=== PATIENT | male | born 1935 | race Hispanic/Latino ===

== ENCOUNTER 2017-05-06 21:46 | Inpatient (IN) | payer MEDICARE, OTHER ==
[2017-05-06 21:50] VITALS: BMI 25.0
--- NOTE | 2017-05-06 22:08 | ED PDOC ---
Arrival/HPI - General Chief Complaint: Syncope Time Seen by Provider: 05/06/17 21:57 Historian: Patient - History of Present Illness Narrative History of Present Illness (Text): 05/06/17 21:57 Finn Ferreira is an 81 year old male brought in by EMS following a syncopal episode at home prior to arrival. Patient does no recollect exactly what happened other than the fact the he fell and hit his head. Patient denies any dizziness, visual disturbance, neck pain, back pain, shortness of breath, chest pain. As per collateral information, partner called EMS to have patient transported to the emergency department. Patient is currently without any complaints other than minimal tenderness to his forehead. 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 Biopsy of vocal cord nodule - Anesthesia Hx Anesthesia Reactions: No Hx Malignant Hyperthermia: No - Suicidal Assessment Feels Threatened In Home Enviroment: No Family/Social History - Physician Review Nursing Documentation Reviewed: Yes Family/Social History: No Known Family HX Smoking Status: Former Smoker Hx Alcohol Use: Yes Hx Substance Use: No Hx Substance Use Treatment: No Allergies/Home Meds Allergies/Adverse Reactions: Allergies No Known Allergies Allergy (Verified 05/06/17 21:50) Home Medications: Home Meds Medication Instructions Recorded Confirmed Fluticasone/Salmeterol [Advair 1 puff IH BID 07/28/13 05/06/17 Diskus 250/50] Metoprolol Tartrate [Lopressor] 0 mg PO DAILY 05/06/17 05/06/17 Review of Systems - Physician Review All systems were reviewed & negative as marked: Yes - Review of Systems Constitutional: absent: Fevers, Night Sweats Eyes: absent: Vision Changes ENT: absent: Hearing Changes Respiratory: absent: SOB, Cough Cardiovascular: Syncope. absent: Chest Pain Gastrointestinal: absent: Abdominal Pain Genitourinary Male: absent: Dysuria Musculoskeletal: absent: Arthralgias Skin: absent: Rash, Pruritis Neurological: absent: Headache, Dizziness Endocrine: absent: Diaphoresis, Polyuria Hemo/Lymphatic: absent: Adenopathy, Easy Bleeding Physical Exam Vital Signs Reviewed: Yes Vital Signs Temp Pulse Resp BP Pulse Ox 05/07/17 01:47 70 18 133/71 98 05/06/17 23:47 72 18 132/70 97 05/06/17 21:55 97.8 F 70 21 131/71 97 Temperature: Afebrile Blood Pressure: Normal Pulse: Regular Respiratory Rate: Normal Appearance: Positive for: Well-Appearing, Non-Toxic, Comfortable Pain Distress: None Mental Status: Positive for: Alert and Oriented X 3 - Systems Exam Head: Present: Contusion, Abrasion, Other (swelling to right forehead) Pupils: Present: PERRL Extroacular Muscles: Present: EOMI Conjunctiva: Present: Normal Mouth: Present: Moist Mucous Membranes Neck: Present: Normal Range of Motion Respiratory/Chest: Present: Clear to Auscultation, Good Air Exchange. No: Respiratory Distress, Accessory Muscle Use Cardiovascular: Present: Regular Rate and Rhythm, Normal S1, S2. No: Murmurs Abdomen: Present: Normal Bowel Sounds. No: Tenderness, Distention, Peritoneal Signs Back: Present: Normal Inspection Upper Extremity: Present: Normal Inspection, Normal ROM. No: Cyanosis, Edema Lower Extremity: Present: Normal Inspection, NORMAL PULSES, Normal ROM. No: Edema Neurological: Present: GCS=15, CN II-XII Intact, Speech Normal, Motor Func Grossly Intact, Normal Sensory Function, Normal Cerebellar Funct, Norm Deep Tendon Reflexes, Gait Normal, Memory Normal, Normal 2Pt Descrimination Skin: Present: Warm, Dry, Normal Color. No: Rashes Psychiatric: Present: Alert, Oriented x 3, Normal Insight, Normal Concentration Medical Decision Making ED Course and Treatment: 05/06/17 22:10 Impression: 81 year old male complaining of a syncopal episode prior to arrival. Differential Diagnosis included but are not limited to: Syncope Plan: -- EKG -- Chest X-ray -- Head CT w/o contrast -- Labs -- Reassess and disposition Prior Visits: Notes and results from previous visits were reviewed. Patient last seen in the ED on 01/23/15 for ETOH intoxication. Patient was discharged home. Progress Notes: EKG: Ordered, reviewed, and independently interpreted the EKG. Rate : 72 BPM Rhythm : NSR Interpretation : No ST-segment elevations or depressions, no T-wave inversions, normal intervals. 05/07/17 00:13 CT Head Without Intravenous Contrast Creator : NORA ALDRICH FINDINGS: Brain: No acute intracranial hemorrhage. Age-appropriate periventricular white matter disease. No edema. Ventricles: Age-appropriate ventriculomegaly. Bones: No acute displaced fracture. Sinuses: Unremarkable as visualized. No acute sinusitis. Mastoid air cells: Unremarkable as visualized. No mastoid effusion. IMPRESSION: No acute intracranial hemorrhage, or suspicious mass effect. 05/07/17 00:[address] Fisher, who accepts to his service under telemetry observation. Dr. Cardoso neurology consult to follow. - Lab Interpretations Lab Results: 05/06/17 22:00 05/06/17 22:00 Lab Results 05/06/17 22:00: WBC 10.1, RBC 4.77, Hgb 15.1, Hct 43.6, MCV 91.4, MCH 31.7, MCHC 34.6, RDW 14.6 H, Plt Count 253, MPV 9.4 05/06/17 22:00: Sodium 128 L, Potassium 4.9, Chloride 89 L, Carbon Dioxide 25, Anion Gap 19, BUN 8, Creatinine 0.6 L, Est GFR ( Amer) > 60, Est GFR (Non -Af Amer) > 60, Random Glucose 98, Calcium 8.6, Total Bilirubin 0.8, AST 58, ALT 32, Alkaline Phosphatase 81, Lactate Dehydrogenase 710 H, Total Creatine Kinase 88, Troponin I 0.01, Total Protein 6.7, Albumin 3.8, Globulin 2.9, Albumin/Globulin Ratio 1.3 05/06/17 22:00: PT 11.0, INR 1.02, APTT 25.9 I have reviewed the lab results: Yes - RAD Interpretation Radiology Orders: 05/06/17 21:57 HEAD W/O CONTRAST [CT] Stat CHEST PORTABLE [RAD] Stat - Scribe Statement The provider has reviewed the documentation as recorded by the Elleibe Meredith Barrett Provider Scribe Attestation: All medical record entries made by the Scribe were at my direction and personally dictated by me. I have reviewed the chart and agree that the record accurately reflects my personal performance of the history, physical exam, medical decision making, and the department course for this patient. I have also personally directed, reviewed, and agree with the discharge instructions and disposition. Disposition/Present on Arrival - Present on Arrival Any Indicators Present on Arrival: No History of DVT/PE: No History of Uncontrolled Diabetes: No Urinary Catheter: No History of Decub. Ulcer: No History Surgical Site Infection Following: None - Disposition Have Diagnosis and Disposition been Completed?: Yes Diagnosis: Syncope, Head injury, Forehead contusion Disposition: HOSPITALIZED Disposition Time: 00:48 Patient Plan: Observation Patient Problems: Current Active Problems Problem Status Onset Forehead contusion Acute Head injury Acute Syncope Acute Condition: STABLE
[2017-05-06 22:38] LABS: HEMATOCRIT 43.6 % (42.0-52.0); MEAN CELL VOLUME 91.4 fl (80.0-105.0); MEAN CORPUSCULAR HEMOGLOBIN 31.7 pg (25.0-35.0); MEAN CORPUSCULAR HGB CONC 34.6 g/dl (31.0-37.0); MEAN PLATELET VOLUME 9.4 fl (7.0-11.0); RED CELL DISTRIBUTION WIDTH 14.6 % (11.5-14.5); WHITE BLOOD COUNT 10.1 10^3/ul (4.5-11.0)
[2017-05-06 22:46] LABS: ALB/GLOB RATIO 1.3 (1.1-1.8); ALKALINE PHOSPHATASE 81 U/L (38-126); ALT/SGPT 32 U/L (7-56); AST/SGOT 58 U/L (17-59); BILIRUBIN,TOTAL 0.8 mg/dL (0.2-1.3); BLOOD UREA NITROGEN 8 mg/dL (7-21); CALCIUM 8.6 mg/dL (8.4-10.5); CARBON DIOXIDE 25 mmol/L (21-33); CHLORIDE 89 mmol/L (98-107); GFR AFRICAN-AMERICAN > 60; GLUCOSE,RANDOM 98 mg/dL (70-110); POTASSIUM 4.9 mmol/L (3.6-5.0); SODIUM 128 mmol/L (132-148); TOTAL PROTEIN 6.7 g/dL (5.8-8.3)
[2017-05-06 22:57] LABS: TROPONIN I 0.01 ng/mL
--- NOTE | 2017-05-06 23:07 | CT ---
EXAM: CT Head Without Intravenous Contrast CLINICAL HISTORY: 81 years old, male; Pain; Headache; Headache not specified; Additional info: Syncope TECHNIQUE: Axial computed tomography images of the head/brain without intravenous contrast. All CT scans at this facility use one or more dose reduction techniques, viz.: automated exposure control; ma/kV adjustment per patient size (including targeted exams where dose is matched to indication; i.e. head); or iterative reconstruction technique. Sagittal reformatted images were created and reviewed. COMPARISON: No relevant prior studies available. examination is limited by motion artifact. FINDINGS: Brain: No acute intracranial hemorrhage. Age-appropriate periventricular white matter disease. No edema. Ventricles: Age-appropriate ventriculomegaly. Bones: No acute displaced fracture. Sinuses: Unremarkable as visualized. No acute sinusitis. Mastoid air cells: Unremarkable as visualized. No mastoid effusion. IMPRESSION: No acute intracranial hemorrhage, or suspicious mass effect.
[2017-05-06 23:09] LABS: INR 1.02 (0.93-1.08); PARTIAL THROMBOPLASTIN TIME 25.9 Seconds (23.7-30.8)
[2017-05-07] MEDS: Arformoterol 15 mcg/2 ml Inh Sol IH SCH ×2 (08:30→21:00)
--- NOTE | 2017-05-07 08:55 | RAD ---
HISTORY: Syncope COMPARISON: 08/05/2013 FINDINGS: LUNGS: The lungs are hyperinflated and there is peribronchial thickening with chronic changes in both lungs. No focal consolidation. PLEURA: No significant pleural effusion identified, no pneumothorax apparent. CARDIOVASCULAR: Normal. OSSEOUS STRUCTURES: No significant abnormalities. VISUALIZED UPPER ABDOMEN: Normal. OTHER FINDINGS: None. IMPRESSION: No active pulmonary disease.
[2017-05-07] MEDS ORDERED: Albuterol-Ipratrop 3 mg / 0.5 (3 ml) UD IH PRN (08:56)
--- NOTE | 2017-05-07 10:11 | CARD ---
APPROVED REPORT EKG Measurement Heart [id number] <Conclusion> Poor data quality, interpretation may be adversely affected Normal sinus rhythm Normal ECG
--- NOTE | 2017-05-07 12:55 | CP.PCM.CON ---
<Nicki Jordan - Last Filed: 05/07/17 16:00> History of Present Illness - History of Present Illness History of Present Illness: Neurology Consult Note for Mal Montgomery PGY2 Reason for consult: Syncope This is a 81Y M with PMH HTN, COPD and depression who came to ED for syncopal episode and fall. Patient reports he was drinking wine at home. When he went to stand up, he felt dizzy and lost consciousness and hit his head. His partner was home at the time. He denies tongue biting, tonic-clonic movements, incontinence, vertigo, vision changes, CP or SOB. He reports this has happened several times in the past where he has gotten dizzy and fell. Head CT in ED was negative for acute pathology. PMH: HTN, depression, COPD, fall PSH: Vocal cord nodule biopsy Home meds: As per SEP All: NKDA SH: Drinks 2 large glasses of wine everyday, former heavy smoker (used to smoke 2ppd x >30yrs), denies drug use. 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 Partial corneal transplant - RENAL Hx Chronic Kidney Disease: No - HEMATOLOGICAL/ONCOLOGICAL Hx Blood Disorders: No - INTEGUMENTARY Hx Dermatological Problems: No - MUSCULOSKELETAL/RHEUMATOLOGICAL Hx Musculoskeletal Disorders: No - GASTROINTESTINAL Hx Gastrointestinal Disorders: No - GENITOURINARY/GYNECOLOGICAL Hx Genitourinary Disorders: No - PSYCHIATRIC Hx Depression: Yes Hx Substance Use: No - SURGICAL HISTORY Other/Comment: cataract and corneal transplant. Biopsy of vocal cord nodule - ANESTHESIA Hx Anesthesia Reactions: No Hx Malignant Hyperthermia: No Meds Allergies/Adverse Reactions: Allergies Allergy/AdvReac Type Severity Reaction Status Date / Time No Known Allergies Allergy Verified 05/06/17 21:50 - Medications Medications: Current Medications Albuterol/Ipratropium (Duoneb 3 Mg/0.5 Mg (3 Ml) Ud) 3 ml IH Q2H PRN PRN Reason: Shortness of Breath Arformoterol Tartrate (Brovana) 15 mcg IH [id number] [facility] Last Admin: 05/07/17 08:30 Dose: 15 mcg Metoprolol Tartrate (Lopressor) 25 mg PO BID [facility] Last Admin: 05/07/17 09:58 Dose: 25 mg Physical Exam - Constitutional Appears: No Acute Distress - Head Exam Head Exam: ATRAUMATIC, NORMAL INSPECTION, NORMOCEPHALIC - Eye Exam Eye Exam: Normal appearance, PERRL Pupil Exam: NORMAL ACCOMODATION, PERRL - ENT Exam ENT Exam: Mucous Membranes Moist - Respiratory Exam Respiratory Exam: Clear to Auscultation Bilateral, NORMAL BREATHING PATTERN. absent: Rales, Rhonchi, Wheezes - Cardiovascular Exam Cardiovascular Exam: REGULAR RHYTHM, +S1, +S2. absent: Gallop, Rubs, Systolic Murmur - GI/Abdominal Exam GI & Abdominal Exam: Normal Bowel Sounds, Soft. absent: Rebound, Rigid, Tenderness - Extremities Exam Extremities exam: Positive for: normal inspection. Negative for: calf tenderness, pedal edema - Neurological Exam Neurological exam: Alert, CN II-XII Intact, Normal Gait, Oriented x3 - Psychiatric Exam Psychiatric exam: Normal Affect, Normal Mood - Skin Skin Exam: Dry, Intact, Normal Color, Warm Results - Vital Signs Recent Vital Signs: Last Vital Signs Temp 98.7 F 05/07/17 12:07 Pulse 74 05/07/17 12:07 Resp 16 05/07/17 12:07 BP 117/60 05/07/17 12:07 Pulse Ox 95 05/07/17 06:00 - Labs Result Diagrams: 05/06/17 22:00 05/06/17 22:00 Labs: Laboratory Results - last 24 hr 05/07/17 09:00 Urine Opiates Screen Negative Urine Methadone Screen Negative Ur Barbiturates Screen Negative Ur Phencyclidine Scrn Negative Ur Amphetamines Screen Negative U Benzodiazepines Scrn Negative U Oth Cocaine Metabols Negative U Cannabinoids Screen Negative Assessment & Plan - Assessment and Plan (Free Text) Assessment: This is a 81Y M with PMH HTN, COPD and depression who came to ED for syncopal episode and fall. This can be secondary to alcohol use versus orthostasis versus arrhythmia. Plan: - Will obtain carotid doppler - Counselled pt on alcohol cessation - Orthostatics ordered and reviewed- negative - Avoid sudden drops in BP - Utox negative - Recommend cardiac work up for syncopal episodes to rule out arrhythmia - physical therapy - Maintain adequate hydration No further neurological work up at this time. Thank you for this consultation. Please re-consult if needed. Case seen, discussed and reviewed with Dr. Cardoso. Mal Jordan PGY2 - Date & Time Date: 05/07/17 Time: 13:00 <Damien Cardoso - Last Filed: 05/07/17 16:23> Meds - Medications Medications: Current Medications Acetaminophen (Tylenol 325mg Tab) 650 mg PO Q6H PRN PRN Reason: Headache Last Admin: 05/07/17 13:03 Dose: 650 mg Albuterol/Ipratropium (Duoneb 3 Mg/0.5 Mg (3 Ml) Ud) 3 ml IH Q2H PRN PRN Reason: Shortness of Breath Arformoterol Tartrate (Brovana) 15 mcg IH [id number] [facility] Last Admin: 05/07/17 08:30 Dose: 15 mcg Metoprolol Tartrate (Lopressor) 25 mg PO BID [facility] Last Admin: 05/07/17 09:58 Dose: 25 mg Results - Vital Signs Recent Vital Signs: Last Vital Signs Temp 98.7 F 05/07/17 12:07 Pulse 74 05/07/17 12:07 Resp 16 05/07/17 12:07 BP 117/60 05/07/17 12:07 Pulse Ox 95 05/07/17 06:00 - Labs Result Diagrams: 05/06/17 22:00 05/06/17 22:00 Labs: Laboratory Results - last 24 hr 05/07/17 09:00 Urine Opiates Screen Negative Urine Methadone Screen Negative Ur Barbiturates Screen Negative Ur Phencyclidine Scrn Negative Ur Amphetamines Screen Negative U Benzodiazepines Scrn Negative U Oth Cocaine Metabols Negative U Cannabinoids Screen Negative Attending/Attestation - Attestation I have personally seen and examined this patient.: Yes I have fully participated in the care of the patient.: Yes I have reviewed all pertinent clinical information: Yes
--- NOTE | 2017-05-07 19:37 | HP ---
HISTORY OF PRESENT ILLNESS: The patient is an 81-year-old male; brought into the emergency department on 05/07/2017 after a syncopal episode at home. The patient denies any prodromal symptoms, states he was drinking a few glasses of wine and has no recollection of what happened. There was no chest pain, no shortness of breath. He denied any dizziness. There was no witness seizures. The patient has chronic dyspnea on exertion and occasional shortness of breath. He denies dizziness. PAST MEDICAL HISTORY: Includes chronic obstructive pulmonary disease secondary to tobacco, hypertension, gastroesophageal reflux disease. PAST SURGICAL HISTORY: He has no past surgical history. ALLERGIES: HE HAS NO KNOWN DRUG ALLERGIES. CURRENT MEDICATIONS: Include Advair Diskus 250/50, one inhalation twice a day and metoprolol succinate 25 mg daily, aspirin 81 mg daily. FAMILY HISTORY: Noncontributory. SOCIAL HISTORY: The patient has a history of tobacco use, quit several years ago. He drinks approximately 3-4 glasses of wine per day. There is no history of drug use. REVIEW OF SYSTEMS: Essentially negative other than above. PHYSICAL EXAMINATION GENERAL: The patient is a well-developed, well-nourished male, in no acute distress. VITAL SIGNS: Blood pressure 117/60, temperature 98.7, pulse 79, respiratory rate 16. HEENT: Head is normocephalic and atraumatic. Pupils are equal, round and reactive to light. Extraocular movements are intact. NECK: Supple with no thyromegaly, no carotid bruit, no adenopathy. LUNGS: Show few crepitations and decreased breath sounds at the bases, otherwise clear. HEART: Regular rate and rhythm. No JVD. ABDOMEN: Soft, obese, nontender. Bowel sounds are normoactive. EXTREMITIES: Without cyanosis, clubbing or edema. NEUROLOGIC: The patient is awake and oriented x3 without focal, sensory or motor deficits. SKIN: Warm and dry. LABORATORY DATA: WBC is 10.1, hemoglobin 15.1, hematocrit 43.6. Sodium is 128, potassium 4.9, chloride 89, CO2 25, BUN 8, creatinine 0.6. LDH is slightly elevated at 710. IMPRESSION: 1. Hyponatremia, rule out syndrome of inappropriate antidiuretic hormone secretion secondary to lung disease versus dehydration. 2. Syncope. 3. Chronic obstructive pulmonary disease. 4. Hypertension. 5. Gastroesophageal reflux disease. PLAN: The patient is admitted to the telemetry unit. We will monitor electrolytes, start IV saline with cautious hydration. Neurology consult with Dr. Cardoso is ordered. CT scan of the head was negative for any acute bleeds or infarcts and chest x-ray showed no active disease. Physical therapy, evaluation and treatment, social work for discharge planning. SHARI Matute MD
[2017-05-08 07:52] LABS: ALB/GLOB RATIO 1.4 (1.1-1.8); ALKALINE PHOSPHATASE 101 U/L (38-126); ALT/SGPT 35 U/L (7-56); AST/SGOT 40 U/L (17-59); BILIRUBIN,TOTAL 1.2 mg/dL (0.2-1.3); BLOOD UREA NITROGEN 9 mg/dL (7-21); CARBON DIOXIDE 32 mmol/L (21-33); CHLORIDE 86 mmol/L (98-107); GFR AFRICAN-AMERICAN > 60; GLUCOSE,RANDOM 111 mg/dL (70-110); POTASSIUM 4.8 mmol/L (3.6-5.0); SODIUM 127 mmol/L (132-148); TOTAL PROTEIN 6.6 g/dL (5.8-8.3)
[2017-05-08] MEDS: Arformoterol 15 mcg/2 ml Inh Sol IH SCH ×2 (07:57→19:40)
[2017-05-08 08:09] LABS: T4 7.5 ug/dL (5.5-11.0)
[2017-05-08 08:22] LABS: THYROID STIMULATING HORMONE 1.97 mIU/mL (0.46-4.68)
--- NOTE | 2017-05-08 11:39 | CP.PCM.PN ---
Subjective - Date & Time of Evaluation Date of Evaluation: 05/08/17 Time of Evaluation: 09:00 - Subjective Subjective: NAD, denies chest pain, no SOB Objective - Vital Signs/Intake and Output Vital Signs (last 24 hours): Temp Pulse Resp BP Pulse Ox 98.5 F 77 16 159/82 H 95 05/07/17 18:00 05/08/17 06:00 05/07/17 18:00 05/07/17 18:00 05/07/17 06:00 - Medications Medications: Current Medications Acetaminophen (Tylenol 325mg Tab) 650 mg PO Q6H PRN PRN Reason: Headache Last Admin: 05/07/17 18:56 Dose: 650 mg Albuterol/Ipratropium (Duoneb 3 Mg/0.5 Mg (3 Ml) Ud) 3 ml IH Q2H PRN PRN Reason: Shortness of Breath Arformoterol Tartrate (Brovana) 15 mcg IH [id number] Last Admin: 05/08/17 07:57 Dose: 15 mcg Sodium Chloride (Sodium Chloride 0.9%) 1,000 mls @ 100 mls/hr IV .Q10H [id number] Metoprolol Tartrate (Lopressor) 25 mg PO BID [id number] Last Admin: 05/08/17 09:33 Dose: 25 mg - Labs Labs: 05/08/17 07:18 PT 11.0 Seconds (9.9-11.8) 05/06/17 22:00 INR 1.02 (0.93-1.08) 05/06/17 22:00 APTT 25.9 Seconds (23.7-30.8) 05/06/17 22:00 - Respiratory Exam Respiratory Exam: Clear to Ausculation Bilateral, NORMAL BREATHING PATTERN - Cardiovascular Exam Cardiovascular Exam: REGULAR RHYTHM - GI/Abdominal Exam GI & Abdominal Exam: Normal Bowel Sounds - Extremities Exam Extremities Exam: Normal Inspection - Neurological Exam Neurological Exam: Alert, Awake - Skin Skin Exam: Dry, Warm Assessment and Plan (1) Syncope Status: Acute (2) Hyponatremia Status: Acute (3) COPD (chronic obstructive pulmonary disease) Status: Acute (4) Hypertension Status: Acute - Assessment and Plan (Free Text) Plan: start IV normal saline, monitor lytes, neuro consult appreciated, syncope work- up pending
[2017-05-08] MEDS: Sodium Chloride 0.9% 1,000 ML IV SCH ×2 (12:06→22:32)
--- NOTE | 2017-05-08 20:02 | US ---
PROCEDURE: Bilateral carotid artery duplex ultrasound HISTORY: Carotid stenosis syncope PHYSICIAN(S): Valdo Joya MD. TECHNIQUE: Duplex sonography and color-flow Doppler were used to evaluate the carotid bifurcations and limited segments of the vertebral arteries bilaterally. The exam is limited by body habitus. FINDINGS: There is mild to moderate heterogeneous plaque with some shadowing noted at the carotid bifurcations bilaterally. The peak systolic velocity in the proximal right internal carotid artery is 52 cm/sec. This corresponds to a 20 to 39% proximal right ICA stenosis. Normal systolic velocities are noted in the proximal right external carotid artery. There is antegrade flow in the right vertebral artery. The origin of the left internal carotid artery is somewhat obscured by shadowing plaque. The peak systolic velocity in the proximal left internal carotid artery is 76 cm/sec. This corresponds to a 20 to 39% proximal left ICA stenosis. Normal systolic velocities are noted in the proximal left external carotid artery. There is antegrade flow in the left vertebral artery. IMPRESSION: 1. Bilateral 20-39% proximal ICA stenoses. 2. Antegrade flow in both vertebral arteries.
[2017-05-09 06:39] LABS: BASO # 0.02 K/mm3 (0.0-2.0); BASO % 0.3 % (0.0-3.0); EOS # 0.1 (0.0-0.7); EOS % 1.8 % (1.5-5.0); GRAN # 4.36 (1.4-6.5); GRAN % 59.5 % (50.0-68.0); HEMATOCRIT 42.2 % (42.0-52.0); LYMPH # 2.1 (1.2-3.4); MEAN CELL VOLUME 90.9 fl (80.0-105.0); MEAN CORPUSCULAR HEMOGLOBIN 31.3 pg (25.0-35.0); MEAN CORPUSCULAR HGB CONC 34.4 g/dl (31.0-37.0); MEAN PLATELET VOLUME 9.5 fl (7.0-11.0); MONO # 0.7 (0.1-0.6); MONO % 9.4 % (1.0-6.0); RED CELL DISTRIBUTION WIDTH 14.5 % (11.5-14.5); WHITE BLOOD COUNT 7.3 10^3/ul (4.5-11.0)
[2017-05-09] MEDS: Sodium Chloride 0.9% 1,000 ML IV SCH ×2 (06:45→19:45)
[2017-05-09 06:46] LABS: ALB/GLOB RATIO 1.3 (1.1-1.8); ALKALINE PHOSPHATASE 88 U/L (38-126); ALT/SGPT 35 U/L (7-56); AST/SGOT 40 U/L (17-59); BILIRUBIN,TOTAL 1.2 mg/dL (0.2-1.3); BLOOD UREA NITROGEN 7 mg/dL (7-21); CALCIUM 8.6 mg/dL (8.4-10.5); CARBON DIOXIDE 28 mmol/L (21-33); CHLORIDE 90 mmol/L (98-107); GFR AFRICAN-AMERICAN > 60; GLUCOSE,RANDOM 93 mg/dL (70-110); POTASSIUM 4.4 mmol/L (3.6-5.0); SODIUM 127 mmol/L (132-148); TOTAL PROTEIN 6.6 g/dL (5.8-8.3)
[2017-05-09] MEDS: Arformoterol 15 mcg/2 ml Inh Sol IH SCH ×2 (07:29→21:00)
--- NOTE | 2017-05-09 13:04 | CP.PCM.PN ---
Subjective - Date & Time of Evaluation Date of Evaluation: 05/09/17 Time of Evaluation: 10:00 - Subjective Subjective: NAD, denies chest pain, no SOB Objective - Vital Signs/Intake and Output Vital Signs (last 24 hours): Temp Pulse Resp BP Pulse Ox 97.8 F 64 19 173/94 H 98 05/09/17 12:00 05/09/17 12:00 05/09/17 12:00 05/09/17 12:00 05/09/17 06:00 Intake and Output: 05/09/17 05/09/17 06:59 18:59 Intake Total 1620 1200 Output Total 900 Balance 720 1200 - Medications Medications: Current Medications Acetaminophen (Tylenol 325mg Tab) 650 mg PO Q6H PRN PRN Reason: Headache Last Admin: 05/08/17 22:32 Dose: 650 mg Albuterol/Ipratropium (Duoneb 3 Mg/0.5 Mg (3 Ml) Ud) 3 ml IH Q2H PRN PRN Reason: Shortness of Breath Arformoterol Tartrate (Brovana) 15 mcg IH [id number] [facility] Last Admin: 05/09/17 07:29 Dose: 15 mcg Sodium Chloride (Sodium Chloride 0.9%) 1,000 mls @ 100 mls/hr IV .Q10H [facility] Last Admin: 05/09/17 06:45 Dose: Not Given Metoprolol Tartrate (Lopressor) 25 mg PO BID [facility] Last Admin: 05/09/17 09:33 Dose: 25 mg - Labs Labs: 05/09/17 06:29 05/09/17 06:29 PT 11.0 Seconds (9.9-11.8) 05/06/17 22:00 INR 1.02 (0.93-1.08) 05/06/17 22:00 APTT 25.9 Seconds (23.7-30.8) 05/06/17 22:00 - Head Exam Head Exam: ATRAUMATIC, NORMOCEPHALIC - Respiratory Exam Respiratory Exam: Prolonged Expiratory Phase, Rhonchi - Cardiovascular Exam Cardiovascular Exam: REGULAR RHYTHM - GI/Abdominal Exam GI & Abdominal Exam: Soft, Normal Bowel Sounds - Extremities Exam Extremities Exam: Normal Inspection - Neurological Exam Neurological Exam: Alert, Awake - Skin Skin Exam: Dry, Warm Assessment and Plan (1) Syncope Status: Acute (2) Hyponatremia Status: Acute (3) COPD (chronic obstructive pulmonary disease) Status: Acute (4) Hypertension Status: Acute - Assessment and Plan (Free Text) Plan: remains hyponatremic on normal saline, thyroid function tests WNL, will obtain urine lytes and osm, renal consult Dr. Alcazar/Nathan, carotid duplex neg for significant obstruction, continue neuro follow-up, physical therapy, SW for discharge planning
[2017-05-09 18:50] LABS: PH,URINE 6.5 (4.7-8.0); URINE BILIRUBIN NEGATIVE (NEGATIVE); URINE BLOOD NEGATIVE (NEGATIVE); URINE GLUCOSE (UA) NEGATIVE (NEGATIVE); URINE KETONE 15 mg/dL (NEGATIVE); URINE LEUKOCYTE ESTERASE NEGATIVE Leu/uL (NEGATIVE); URINE PROTEIN NEGATIVE mg/dL (<30 mg/dL)
[2017-05-09 18:58] LABS: URINE APPEARANCE CLEAR (CLEAR); URINE COLOR YELLOW (YELLOW)
[2017-05-10] MEDS: Sodium Chloride 0.9% 1,000 ML IV SCH ×2 (06:50→11:48)
--- NOTE | 2017-05-10 08:01 | CON ---
DATE: 05/09/2017 REASON FOR CONSULTATION: Hyponatremia, syncopal episode at home. HISTORY OF PRESENTING ILLNESS: An 81-year-old male, previously unknown to me, was brought to the Emergency Room on 05/06/2017 following a syncopal episode at home prior to his arrival. The patient reports that he passed out at home and was brought to the Emergency Room by a roommate. The patient denies any chest pain or palpitations prior to fall. He denies any dizziness. He denies any headaches. He reports shortness of breath. He says that his cough and his shortness of breath are chronic. In the Emergency Room, the patient was found to have low sodium of 128. He was found to be hemodynamically stable, blood pressure was 131/71, heart rate was 70, and respiratory rate of 20. The patient was being worked up for syncope. His chest x-ray showed no active pulmonary disease. CT of the head showed no intracranial hemorrhage or mass effect. Carotid ultrasound showed bilateral 20% to 39% proximal ICA stenosis. Consultation is requested for hyponatremia. PAST MEDICAL AND SURGICAL HISTORY: COPD, hypertension, GERD, and active smoking. FAMILY HISTORY: Noncontributory. SOCIAL HISTORY: Two packs per day smoker for 45 years, quit five years ago; four to five glasses of alcohol per day; and no drug abuse. REVIEW OF SYSTEMS: Chronic cough, chronic shortness of breath, and rest unremarkable. All systems are reviewed. PHYSICAL EXAMINATION: GENERAL: Elderly male, lying in bed, in mild respiratory distress. VITAL SIGNS: Blood pressure 151/77, heart rate 110, respiratory rate 18 to 20, and temperature 97.8. HEENT: Normocephalic and atraumatic. NECK: Supple. No JVD. LUNGS: Bilateral rhonchi, distant breath sounds, equal expansion. CARDIAC: S1 and S2, regular rate and rhythm, no murmur, no rub. ABDOMEN: Obese, distended, soft, nontender, and bowel sounds present. EXTREMITIES: No lower extremity edema. INTAKE AND OUTPUT: 1620/900. LABORATORY DATA: WBC 7.3, hemoglobin 14.5, hematocrit 42, platelets 203. Sodium 127, potassium 4.4, chloride 90, CO2 of 28, BUN 7, creatinine 0.5, and glucose 93. Uric acid 4.2. Calcium 8.6. Total bilirubin 1.2 and albumin 3.8. Urinalysis; yellow, clear, pH of 6.5, specific gravity less than 1.005, glucose negative, ketones 15, and urine sodium 95. CURRENT MEDICATIONS: Brovana, DuoNeb; Lopressor 25 b.i.d.; Megace 800 t.i.d.; normal saline at 100, stopped early this morning; Tylenol. ASSESSMENT: 1. Hyponatremia, euvolemic. 2. Hypertension. 3. Chronic obstructive pulmonary disease. 4. Gastroesophageal reflux disease. 5. Status post syncopal episode. 6. Long-time smoking. PLAN: 1. 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 2. Unclear why the patient would have SIADH except for a long history of smoking, COPD. 3. Restrict p.o. fluids to 1200 mL per day. 4. Consider workup for occult malignancy. 5. Tolvaptan 15 mg. Thank you for the courtesy of this consultation. We will follow this patient closely with you. Janna Evans MD
[2017-05-10] MEDS: Arformoterol 15 mcg/2 ml Inh Sol IH SCH ×2 (08:02→19:28)
[2017-05-10] MEDS ORDERED: Tolvaptan 15 MG TAB PO SCH (10:00)
[2017-05-10] MEDS: Megestrol Acetate 40 mg/ml Cup PO SCH ×3 (10:38→17:41)
[2017-05-10 11:52] LABS: ALB/GLOB RATIO 1.4 (1.1-1.8); ALKALINE PHOSPHATASE 75 U/L (38-126); ALT/SGPT 38 U/L (7-56); AST/SGOT 30 U/L (17-59); BILIRUBIN,TOTAL 0.7 mg/dL (0.2-1.3); BLOOD UREA NITROGEN 4 mg/dL (7-21); CALCIUM 8.4 mg/dL (8.4-10.5); CARBON DIOXIDE 30 mmol/L (21-33); CHLORIDE 93 mmol/L (98-107); GFR AFRICAN-AMERICAN > 60; GLUCOSE,RANDOM 111 mg/dL (70-110); POTASSIUM 3.7 mmol/L (3.6-5.0); SODIUM 130 mmol/L (132-148); TOTAL PROTEIN 5.9 g/dL (5.8-8.3)
--- NOTE | 2017-05-10 13:09 | CP.PCM.PN ---
Subjective - Date & Time of Evaluation Date of Evaluation: 05/10/17 Time of Evaluation: 08:00 - Subjective Subjective: NAD, denies chest pain, no SOB Objective - Vital Signs/Intake and Output Vital Signs (last 24 hours): Temp Pulse Resp BP Pulse Ox 97.8 F 68 20 162/91 H 96 05/10/17 06:00 05/10/17 10:37 05/10/17 06:00 05/10/17 06:00 05/10/17 06:00 Intake and Output: 05/10/17 05/10/17 06:59 18:59 Intake Total 1660 1300 Output Total 750 975 Balance 910 325 - Medications Medications: Current Medications Acetaminophen (Tylenol 325mg Tab) 650 mg PO Q6H PRN PRN Reason: Headache Last Admin: 05/09/17 23:33 Dose: 650 mg Albuterol/Ipratropium (Duoneb 3 Mg/0.5 Mg (3 Ml) Ud) 3 ml IH Q2H PRN PRN Reason: Shortness of Breath Arformoterol Tartrate (Brovana) 15 mcg IH [id number] [facility] Last Admin: 05/10/17 08:02 Dose: 15 mcg Docusate Sodium (Colace) 100 mg PO BID [facility] Last Admin: 05/10/17 10:38 Dose: 100 mg Sodium Chloride (Sodium Chloride 0.9%) 1,000 mls @ 100 mls/hr IV .Q10H [facility] Last Admin: 05/10/17 11:48 Dose: Not Given Megestrol Acetate (Megace) 800 mg PO TID [facility] Last Admin: 05/10/17 10:38 Dose: 800 mg Metoprolol Tartrate (Lopressor) 25 mg PO BID [facility] Last Admin: 05/10/17 10:37 Dose: 25 mg Tolvaptan (Samsca) 15 mg PO DAILY [facility] Stop: 05/11/17 21:08 Last Admin: 05/10/17 10:37 Dose: 15 mg - Labs Labs: 05/09/17 06:29 05/10/17 12:00 PT 11.0 Seconds (9.9-11.8) 05/06/17 22:00 INR 1.02 (0.93-1.08) 05/06/17 22:00 APTT 25.9 Seconds (23.7-30.8) 05/06/17 22:00 - Respiratory Exam Respiratory Exam: Decreased Breath Sounds, NORMAL BREATHING PATTERN - Cardiovascular Exam Cardiovascular Exam: REGULAR RHYTHM - GI/Abdominal Exam GI & Abdominal Exam: Soft, Normal Bowel Sounds - Back Exam Back Exam: NORMAL INSPECTION - Neurological Exam Neurological Exam: Alert, Awake - Skin Skin Exam: Dry, Warm Assessment and Plan (1) Syncope Status: Acute (2) Hyponatremia Status: Acute (3) COPD (chronic obstructive pulmonary disease) Status: Acute (4) Hypertension Status: Acute - Assessment and Plan (Free Text) Plan: renal consult Dr. Evans appreciated, on Tolvaptan 15mg qd for probable SIADH as cause of hyponatremia, will monitor DMITRI flynn for discharge planning
[2017-05-11 06:20] LABS: ALB/GLOB RATIO 1.4 (1.1-1.8); ALKALINE PHOSPHATASE 80 U/L (38-126); ALT/SGPT 39 U/L (7-56); AST/SGOT 28 U/L (17-59); BILIRUBIN,TOTAL 0.6 mg/dL (0.2-1.3); BLOOD UREA NITROGEN 8 mg/dL (7-21); CARBON DIOXIDE 36 mmol/L (21-33); CHLORIDE 97 mmol/L (95-110); GFR AFRICAN-AMERICAN > 60; GLUCOSE,RANDOM 115 mg/dL (70-110); POTASSIUM 3.6 mmol/L (3.6-5.0); SODIUM 140 mmol/L (132-148); TOTAL PROTEIN 6.2 g/dL (5.8-8.3)
[2017-05-11 06:37] VITALS: O2SAT 98
[2017-05-11] MEDS: Arformoterol 15 mcg/2 ml Inh Sol IH SCH (07:54)
--- NOTE | 2017-05-11 08:49 | PN ---
DATE: 05/10/2017 SUBJECTIVE: The patient is seen lying in bed. He is awake, he is alert, and he is comfortable. He denies any pain. He denies any chest tightness. He does have some shortness of breath and cough. PHYSICAL EXAMINATION GENERAL: Obese, elderly male lying in bed. VITAL SIGNS: Blood pressure 162/91, heart rate 68, respiratory rate 20, temperature 98.6. HEENT: Normocephalic and atraumatic. NECK: Supple, no JVD. LUNGS: Bilateral equal entry, no rales, distant breath sounds, scattered rhonchi. HEART: S1 and S2. Regular rate and rhythm. No murmur, no rub. ABDOMEN: Obese, distended, soft, nontender. Bowel sounds present. EXTREMITIES: No lower extremity edema. INTAKE AND OUTPUT: 2860/750. LABORATORY DATA WBC 7, hemoglobin 14.5, hematocrit 42, platelets 203. Sodium 130, potassium 3.7, chloride 93, CO2 13, BUN 4, creatinine 0.5, glucose 111, calcium 8.4, albumin 3.4. Urinalysis: Specific gravity less than 1.005, protein negative, blood negative, ketones 15. CURRENT MEDICATIONS: Brovana, Colace, DuoNeb, Lopressor, Megace, [id number] mg given this morning, Tylenol, normal saline at 100. ASSESSMENT/PLAN 1. 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 2. Status post syncope. 3. Chronic obstructive pulmonary disease. 4. Long-term smoking, quit 5 years ago. 5. Severe hypertension. 6. Advanced age. PLAN 1. Discontinue IV fluids. 2. Monitor sodium, on tolvaptan. 3. Continue respiratory treatments. 4. Complete syncope workup 5. Monitor blood pressure closely. May need additional medication Janna Evans MD
[2017-05-11] MEDS: Megestrol Acetate 40 mg/ml Cup PO SCH ×3 (10:13→17:03)
--- NOTE | 2017-05-11 10:55 | CP.PCM.PN ---
Subjective - Date & Time of Evaluation Date of Evaluation: 05/11/17 Time of Evaluation: 10:00 - Subjective Subjective: NAD, denies chest pain, no SOB Objective - Vital Signs/Intake and Output Vital Signs (last 24 hours): Temp Pulse Resp BP Pulse Ox 97.3 F L 76 20 163/79 H 98 05/11/17 06:00 05/11/17 10:11 05/11/17 06:00 05/11/17 10:11 05/11/17 06:00 Intake and Output: 05/11/17 05/11/17 06:59 18:59 Intake Total 480 Output Total 500 Balance -20 - Medications Medications: Current Medications Acetaminophen (Tylenol 325mg Tab) 650 mg PO Q6H PRN PRN Reason: Headache Last Admin: 05/09/17 23:33 Dose: 650 mg Albuterol/Ipratropium (Duoneb 3 Mg/0.5 Mg (3 Ml) Ud) 3 ml IH Q2H PRN PRN Reason: Shortness of Breath Arformoterol Tartrate (Brovana) 15 mcg IH [id number] [facility] Last Admin: 05/11/17 07:54 Dose: 15 mcg Docusate Sodium (Colace) 100 mg PO BID [facility] Last Admin: 05/11/17 10:10 Dose: 100 mg Megestrol Acetate (Megace) 800 mg PO TID [facility] Last Admin: 05/11/17 10:13 Dose: 800 mg Metoprolol Tartrate (Lopressor) 25 mg PO BID [facility] Last Admin: 05/11/17 10:11 Dose: 25 mg - Labs Labs: 05/09/17 06:29 05/11/17 05:40 PT 11.0 Seconds (9.9-11.8) 05/06/17 22:00 INR 1.02 (0.93-1.08) 05/06/17 22:00 APTT 25.9 Seconds (23.7-30.8) 05/06/17 22:00 - Respiratory Exam Respiratory Exam: Clear to Ausculation Bilateral, NORMAL BREATHING PATTERN - Cardiovascular Exam Cardiovascular Exam: REGULAR RHYTHM - GI/Abdominal Exam GI & Abdominal Exam: Soft, Normal Bowel Sounds - Extremities Exam Extremities Exam: Normal Inspection - Neurological Exam Neurological Exam: Alert, Awake - Skin Skin Exam: Dry, Warm Assessment and Plan (1) Syncope Status: Resolved (2) Hyponatremia Status: Resolved (3) COPD (chronic obstructive pulmonary disease) Status: Chronic (4) Hypertension Status: Chronic - Assessment and Plan (Free Text) Plan: sodium corrected, add anti-hypertensive for elevated bp, TCU eval
[2017-05-11 12:30] VITALS: RESP 19
[2017-05-11 18:40] VITALS: BP 138/74; PULSE 94; TEMP 97.1
--- NOTE | 2017-05-11 20:10 | PN ---
DATE: 05/11/2017 SUBJECTIVE: The patient is seen lying in bed. He is awake, he is alert, he is comfortable. He does not appear to be in any kind of distress. PHYSICAL EXAMINATION: VITAL SIGNS: Blood pressure 154/81, heart rate 69, respiratory rate 18, temperature 98.1. HEENT: Normocephalic, atraumatic. NECK: Supple, no JVD. LUNGS: Bilateral equal air entry, no rales. CARDIAC: S1 and S2, regular rate and rhythm, no murmur, no rub. ABDOMEN: Obese, distended, soft, nontender, bowel sounds present. EXTREMITIES: No lower extremity edema. INTAKE AND OUTPUT: 1300/975. LABORATORY DATA: WBC 7, hemoglobin 14.5, hematocrit 42, platelets 203. Sodium 140, calcium 3.6, chloride 97, CO2 of 36, BUN 8, creatinine 0.5, glucose 115, calcium 9.0, albumin 3.6. CURRENT MEDICATIONS: Brovana, Colace, DuoNeb, Lopressor, Megace, amlodipine, and Tylenol. ASSESSMENT: 1. Hyponatremia, resolved. 2. Syndrome of inappropriate antidiuretic hormone secretion. 3. Status post syncope. 4. Chronic obstructive pulmonary disease. 5. Hypertension. PLAN: 1. No more tolvaptan. 2. Agree with addition of amlodipine 5 mg daily for better blood pressure control. 3. Continue respiratory treatments. 4. Physical therapy. 5. Discharge planning Janna Evans MD
--- NOTE | 2017-06-11 08:27 | DS ---
HOSPITAL COURSE: The patient is an 81-year-old male admitted through the Emergency Department on 05/07/2017 with syncope. The patient was found to have hyponatremia with a serum sodium of 127 and was admitted to the telemetry unit for further evaluation and management. CT of the head was negative for any acute bleeds or infarcts and workup was negative for acute myocardial infarction. The patient was seen in consultation by Neurology, Dr. Cardoso, as well as Nephrology, Dr. Evans. The patient was started on Samsca 15 mg a day for hyponatremia. He also received IV saline and was placed on fluid restriction. His sodium normalized to 140 and he was discharged to home in stable condition on 05/11/2017. Physical examination and vital signs are as per progress note of 05/11/2017. IMPRESSION: 1. Syncope. 2. Hyponatremia, possibly secondary to syndrome of inappropriate antidiuretic hormone due to lung disease. 3. Chronic obstructive pulmonary disease. 4. Hypertension. 5. Gastroesophageal reflux disease. The patient was discharged to home on the following medications: Lopressor 25 mg daily, Advair Diskus 250/50 one inhalation b.i.d., Norvasc 5 mg daily and Zestril 5 mg daily. The patient will be maintained on a heart-healthy diet. Activity is ad libitum. He will be followed up in the office within the next 1 to 2 weeks. SHARI Matute MD
== END 2017-05-11 18:47 | DRG 645 ==
LOC: ED 21:46 → ERH 05-07 00:51 → 2RNO 05-07 05:00 → OBSVTOIN 05-08 11:27 → 2RNO 05-08 19:55
PROVIDERS: ADMIT Internal Medicine; ATTEND Internal Medicine
DX: E22.2 Syndrome of inappropriate secretion of antidiuretic hormone (principal); S00.83XA Contusion of other part of head, initial encounter; I65.23 Occlusion and stenosis of bilateral carotid arteries; J44.9 Chronic obstructive pulmonary disease, unspecified; K21.9 Gastro-esophageal reflux disease without esophagitis; I10 Essential (primary) hypertension; F32.9 Major depressive disorder, single episode, unspecified; W19.XXXA Unspecified fall, initial encounter; Y92.9 Unspecified place or not applicable; Z87.891 Personal history of nicotine dependence; Z94.7 Corneal transplant status

== ENCOUNTER 2017-05-11 18:47 | Inpatient (IN) | payer OTHER ==
[2017-05-11 19:51] VITALS: BMI 27.2
[2017-05-11] MEDS ORDERED: Pneumococcal 23-Valent Vaccine IM ONE (20:08)
[2017-05-12 06:29] LABS: ALB/GLOB RATIO 1.3 (1.1-1.8); ALKALINE PHOSPHATASE 73 U/L (38-126); ALT/SGPT 34 U/L (7-56); AST/SGOT 27 U/L (17-59); BILIRUBIN,TOTAL 0.6 mg/dL (0.2-1.3); BLOOD UREA NITROGEN 9 mg/dL (7-21); CALCIUM 9.1 mg/dL (8.4-10.5); CARBON DIOXIDE 35 mmol/L (21-33); CHLORIDE 95 mmol/L (98-107); GFR AFRICAN-AMERICAN > 60; GLUCOSE,RANDOM 98 mg/dL (70-110); POTASSIUM 3.9 mmol/L (3.6-5.0); SODIUM 137 mmol/L (132-148); TOTAL PROTEIN 6.1 g/dL (5.8-8.3)
[2017-05-12] MEDS: Arformoterol 15 mcg/2 ml Inh Sol IH SCH ×2 (07:37→21:15)
--- NOTE | 2017-05-12 11:13 | HP ---
HISTORY OF PRESENT ILLNESS: The patient is an 81-year-old male admitted to the transitional care unit for subacute rehab status post hospitalization. The patient was admitted through the emergency department on 05/07/2017 after syncopal episode. The patient was seen in consultation by Neurology, had an uneventful hospital course and is transferred to transitional care for further evaluation and management. The patient was also noted to have a low sodium level and seen in consultation by Renal, Dr. Evans. He was started on Samsca 15 mg daily with improvement of sodium level to 140. 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 PAST SURGICAL HISTORY: The patient has no past surgical history. ALLERGIES: THE PATIENT HAS NO KNOWN DRUG ALLERGIES. CURRENT MEDICATIONS: Include Brovana 15 mcg inhaled q. 12 hours, Colace 100 mg twice daily, DuoNeb inhaled q. 2 hours p.r.n., metoprolol tartrate 25 mg b.i.d., Megace 800 mg daily, and Norvasc 5 mg daily. SOCIAL HISTORY: The patient has a history of tobacco use, he quit several years ago. He drinks approximately 3 to 4 glasses of wine per day. There is no history of drug use. REVIEW OF SYSTEMS: The patient denies chest pain. There is no shortness of breath. No fevers. No chills. No cough. There is mild dyspnea on exertion with no shortness of breath. No hemoptysis. No rash. No edema. PHYSICAL EXAMINATION GENERAL: The patient is a well-developed, well-nourished male in no acute distress. VITAL SIGNS: Blood pressure 156/73, pulse 75, temperature 98.2, respiratory rate 14. HEENT: Head is normocephalic, atraumatic. Pupils are equal round and reactive to light. Extraocular movements are intact. NECK: Supple with no thyromegaly. No carotid bruits. No adenopathy. LUNGS: Show few crepitations at the bases otherwise clear. HEART: Regular rate and rhythm. No JVD. ABDOMEN: Soft, nontender, slightly obese, bowel sounds are normoactive. EXTREMITIES: Without cyanosis or clubbing. There is trace bipedal edema. NEUROLOGIC: The patient is awake and oriented x3 without focal sensory or motor deficits. SKIN: Warm and dry. IMPRESSION: 1. Status post syncope. 2. Hyponatremia probably secondary to syndrome of inappropriate antidiuretic hormone from lung disease, improved, status post Samsca. 3. Chronic obstructive pulmonary disease. 4. Hypertension. 5. Gastroesophageal reflux disease. PLAN: The patient is admitted to TCU, Physical Therapy, Social Work, and discharge planning. Followup with Renal, Dr. Evans. Monitor electrolytes. SHARI Matute MD
[2017-05-13] MEDS: Megestrol Acetate 40 mg/ml Cup PO SCH (05:43)
[2017-05-13 06:10] LABS: BASO # 0.02 K/mm3 (0.0-2.0); BASO % 0.3 % (0.0-3.0); EOS # 0.4 (0.0-0.7); GRAN # 4.07 (1.4-6.5); GRAN % 53.5 % (50.0-68.0); HEMATOCRIT 40.7 % (42.0-52.0); LYMPH # 2.3 (1.2-3.4); LYMPH % 29.9 % (22.0-35.0); MEAN CORPUSCULAR HEMOGLOBIN 30.9 pg (25.0-35.0); MEAN CORPUSCULAR HGB CONC 32.9 g/dl (31.0-37.0); MEAN PLATELET VOLUME 9.5 fl (7.0-11.0); MONO # 0.9 (0.1-0.6); MONO % 11.3 % (1.0-6.0); RED CELL DISTRIBUTION WIDTH 14.7 % (11.5-14.5); WHITE BLOOD COUNT 7.6 10^3/ul (4.5-11.0)
[2017-05-13 06:28] LABS: ALB/GLOB RATIO 1.2 (1.1-1.8); ALKALINE PHOSPHATASE 68 U/L (38-126); ALT/SGPT 36 U/L (7-56); AST/SGOT 24 U/L (17-59); BILIRUBIN,TOTAL 0.5 mg/dL (0.2-1.3); BLOOD UREA NITROGEN 14 mg/dL (7-21); CALCIUM 8.9 mg/dL (8.4-10.5); CARBON DIOXIDE 35 mmol/L (21-33); CHLORIDE 93 mmol/L (98-107); GFR AFRICAN-AMERICAN > 60; GLUCOSE,RANDOM 98 mg/dL (70-110); POTASSIUM 3.7 mmol/L (3.6-5.0); SODIUM 135 mmol/L (132-148)
[2017-05-13] MEDS: Arformoterol 15 mcg/2 ml Inh Sol IH SCH ×2 (07:30→20:12)
--- NOTE | 2017-05-13 09:58 | CP.PCM.PN ---
Subjective - Date & Time of Evaluation Date of Evaluation: 05/13/17 Time of Evaluation: 09:25 - Subjective Subjective: resting comfortable, NAD Objective - Vital Signs/Intake and Output Vital Signs (last 24 hours): Temp Pulse Resp BP Pulse Ox 97.6 F 81 24 161/82 H 95 05/13/17 06:00 05/13/17 08:18 05/13/17 06:00 05/13/17 08:18 05/13/17 06:00 - Medications Medications: Current Medications Acetaminophen (Tylenol 325mg Tab) 650 mg PO Q6H PRN; Protocol PRN Reason: Headache Albuterol/Ipratropium (Duoneb 3 Mg/0.5 Mg (3 Ml) Ud) 3 ml IH Q2H PRN; Protocol PRN Reason: Shortness of Breath Amlodipine Besylate (Norvasc) 5 mg PO DAILY [facility] PRN Reason: Protocol Last Admin: 05/12/17 10:14 Dose: 5 mg Arformoterol Tartrate (Brovana) 15 mcg IH [id number] [facility] PRN Reason: Protocol Last Admin: 05/13/17 07:30 Dose: 15 mcg Docusate Sodium (Colace) 100 mg PO BID [facility] PRN Reason: Protocol Last Admin: 05/12/17 17:28 Dose: 100 mg Megestrol Acetate (Megace) 800 mg PO 0600 [facility] PRN Reason: Protocol Last Admin: 05/13/17 05:43 Dose: 800 mg Metoprolol Tartrate (Lopressor) 25 mg PO 0800,1800 [facility] PRN Reason: Protocol Last Admin: 05/13/17 08:18 Dose: 25 mg - Labs Labs: 05/13/17 05:45 05/13/17 05:45 - Respiratory Exam Respiratory Exam: Clear to Ausculation Bilateral, NORMAL BREATHING PATTERN - Cardiovascular Exam Cardiovascular Exam: REGULAR RHYTHM - GI/Abdominal Exam GI & Abdominal Exam: Soft - Extremities Exam Extremities Exam: Normal Inspection - Neurological Exam Neurological Exam: Alert, Awake - Skin Skin Exam: Dry, Warm Assessment and Plan (1) Syncope Status: Resolved (2) Hyponatremia Status: Resolved (3) Hypertension Status: Chronic (4) COPD (chronic obstructive pulmonary disease) Status: Chronic - Assessment and Plan (Free Text) Plan: add Lisinopril 5mg qd for elevated bp, continue physical therapy, renal follow- up for hyponatremia, check labs in am, social work for discharge planning
[2017-05-14] MEDS: Megestrol Acetate 40 mg/ml Cup PO SCH (06:15)
[2017-05-14] MEDS: Arformoterol 15 mcg/2 ml Inh Sol IH SCH ×2 (07:25→19:40)
--- NOTE | 2017-05-14 15:39 | CP.PCM.PN ---
Subjective - Date & Time of Evaluation Date of Evaluation: 05/14/17 Time of Evaluation: 09:50 - Subjective Subjective: NAD, no chest pain, no SOB, mild dyspnea on exertion Objective - Vital Signs/Intake and Output Vital Signs (last 24 hours): Temp Pulse Resp BP Pulse Ox 97.9 F 67 20 135/62 94 L 05/14/17 06:00 05/14/17 10:09 05/14/17 06:00 05/14/17 10:09 05/14/17 06:00 Intake and Output: 05/14/17 05/14/17 06:59 18:59 Intake Total 680 Output Total 400 Balance 280 - Medications Medications: Current Medications Acetaminophen (Tylenol 325mg Tab) 650 mg PO Q6H PRN; Protocol PRN Reason: Headache Albuterol/Ipratropium (Duoneb 3 Mg/0.5 Mg (3 Ml) Ud) 3 ml IH Q2H PRN; Protocol PRN Reason: Shortness of Breath Amlodipine Besylate (Norvasc) 5 mg PO DAILY [facility] PRN Reason: Protocol Last Admin: 05/14/17 10:09 Dose: 5 mg Arformoterol Tartrate (Brovana) 15 mcg IH [id number] [facility] PRN Reason: Protocol Last Admin: 05/14/17 07:25 Dose: 15 mcg Docusate Sodium (Colace) 100 mg PO BID [facility] PRN Reason: Protocol Last Admin: 05/14/17 10:10 Dose: 100 mg Lisinopril (Zestril) 5 mg PO DAILY [facility] Last Admin: 05/14/17 10:09 Dose: 5 mg Megestrol Acetate (Megace) 800 mg PO 0600 [facility] PRN Reason: Protocol Last Admin: 05/14/17 06:15 Dose: 800 mg Metoprolol Tartrate (Lopressor) 25 mg PO 0800,1800 [facility] PRN Reason: Protocol Last Admin: 05/14/17 08:39 Dose: 25 mg - Labs Labs: 05/13/17 05:45 05/13/17 05:45 - Respiratory Exam Respiratory Exam: Clear to Ausculation Bilateral, NORMAL BREATHING PATTERN - Cardiovascular Exam Cardiovascular Exam: REGULAR RHYTHM - GI/Abdominal Exam GI & Abdominal Exam: Soft, Normal Bowel Sounds - Extremities Exam Extremities Exam: Normal Inspection - Neurological Exam Neurological Exam: Alert, Awake - Skin Skin Exam: Dry, Warm Assessment and Plan (1) Syncope Status: Resolved (2) Hyponatremia Status: Resolved (3) Hypertension Status: Chronic (4) COPD (chronic obstructive pulmonary disease) Status: Chronic - Assessment and Plan (Free Text) Plan: continue physical therapy, social work for discharge plannning, check lyes/Na in am
[2017-05-14] MEDS: Albuterol-Ipratrop 3 mg / 0.5 (3 ml) UD IH PRN (19:40)
[2017-05-15] MEDS: Megestrol Acetate 40 mg/ml Cup PO SCH (06:28)
[2017-05-15 07:56] LABS: BASO # 0.02 K/mm3 (0.0-2.0); BASO % 0.3 % (0.0-3.0); EOS # 0.3 (0.0-0.7); EOS % 4.5 % (1.5-5.0); GRAN # 3.65 (1.4-6.5); GRAN % 50.2 % (50.0-68.0); HEMATOCRIT 40.6 % (42.0-52.0); LYMPH # 2.4 (1.2-3.4); LYMPH % 33.5 % (22.0-35.0); MEAN CELL VOLUME 95.5 fl (80.0-105.0); MEAN CORPUSCULAR HEMOGLOBIN 30.8 pg (25.0-35.0); MEAN CORPUSCULAR HGB CONC 32.3 g/dl (31.0-37.0); MEAN PLATELET VOLUME 9.4 fl (7.0-11.0); MONO # 0.8 (0.1-0.6); MONO % 11.5 % (1.0-6.0); RED CELL DISTRIBUTION WIDTH 14.6 % (11.5-14.5); WHITE BLOOD COUNT 7.3 10^3/ul (4.5-11.0)
[2017-05-15 08:09] LABS: ALB/GLOB RATIO 1.4 (1.1-1.8); ALKALINE PHOSPHATASE 59 U/L (38-126); ALT/SGPT 39 U/L (7-56); AST/SGOT 34 U/L (17-59); BILIRUBIN,TOTAL 0.4 mg/dL (0.2-1.3); BLOOD UREA NITROGEN 13 mg/dL (7-21); CARBON DIOXIDE 37 mmol/L (21-33); CHLORIDE 95 mmol/L (98-107); GFR AFRICAN-AMERICAN > 60; GLUCOSE,RANDOM 106 mg/dL (70-110); POTASSIUM 4.9 mmol/L (3.6-5.0); SODIUM 138 mmol/L (132-148); TOTAL PROTEIN 6.2 g/dL (5.8-8.3)
[2017-05-15] MEDS: Albuterol-Ipratrop 3 mg / 0.5 (3 ml) UD IH PRN (11:16)
[2017-05-15] MEDS: Arformoterol 15 mcg/2 ml Inh Sol IH SCH ×2 (11:16→20:26)
--- NOTE | 2017-05-15 13:09 | CP.PCM.PN ---
Subjective - Date & Time of Evaluation Date of Evaluation: 05/15/17 Time of Evaluation: 09:45 - Subjective Subjective: no chest pain, no SOB Objective - Vital Signs/Intake and Output Vital Signs (last 24 hours): Temp Pulse Resp BP Pulse Ox 97.9 F 75 20 144/71 94 L 05/14/17 06:00 05/15/17 08:24 05/14/17 06:00 05/15/17 08:24 05/14/17 06:00 - Medications Medications: Current Medications Acetaminophen (Tylenol 325mg Tab) 650 mg PO Q6H PRN; Protocol PRN Reason: Headache Albuterol/Ipratropium (Duoneb 3 Mg/0.5 Mg (3 Ml) Ud) 3 ml IH Q2H PRN; Protocol PRN Reason: Shortness of Breath Last Admin: 05/15/17 11:16 Dose: 3 ml Amlodipine Besylate (Norvasc) 5 mg PO DAILY [facility] PRN Reason: Protocol Last Admin: 05/15/17 11:00 Dose: 5 mg Arformoterol Tartrate (Brovana) 15 mcg IH [id number] [facility] PRN Reason: Protocol Last Admin: 05/15/17 11:16 Dose: 15 mcg Docusate Sodium (Colace) 100 mg PO BID [facility] PRN Reason: Protocol Last Admin: 05/15/17 11:00 Dose: 100 mg Lisinopril (Zestril) 5 mg PO DAILY [facility] Last Admin: 05/15/17 11:00 Dose: 5 mg Megestrol Acetate (Megace) 800 mg PO 0600 [facility] PRN Reason: Protocol Last Admin: 05/15/17 06:28 Dose: 800 mg Metoprolol Tartrate (Lopressor) 25 mg PO 0800,1800 [facility] PRN Reason: Protocol Last Admin: 05/15/17 08:24 Dose: 25 mg - Labs Labs: 05/15/17 07:51 05/15/17 07:51 - Respiratory Exam Respiratory Exam: Rhonchi - Cardiovascular Exam Cardiovascular Exam: REGULAR RHYTHM - GI/Abdominal Exam GI & Abdominal Exam: Soft, Normal Bowel Sounds - Back Exam Back Exam: NORMAL INSPECTION - Neurological Exam Neurological Exam: Abnormal Gait, Alert, Awake - Skin Skin Exam: Dry, Warm Assessment and Plan (1) Syncope Status: Resolved (2) Hyponatremia Status: Resolved (3) Hypertension Status: Chronic (4) COPD (chronic obstructive pulmonary disease) Status: Chronic - Assessment and Plan (Free Text) Plan: continue PT, monitor lytes, nephrology follow-up/Dr. Evans, social work for discharge planning
[2017-05-16] MEDS: Megestrol Acetate 40 mg/ml Cup PO SCH (05:59)
[2017-05-16] MEDS: Arformoterol 15 mcg/2 ml Inh Sol IH SCH ×2 (07:37→19:29)
--- NOTE | 2017-05-16 09:40 | CP.PCM.PN ---
Subjective - Date & Time of Evaluation Date of Evaluation: 05/16/17 Time of Evaluation: 09:15 - Subjective Subjective: NAD, denies chest pain., no SOB Objective - Vital Signs/Intake and Output Vital Signs (last 24 hours): Temp Pulse Resp BP Pulse Ox 97.8 F 84 20 131/82 100 05/16/17 06:00 05/16/17 08:43 05/16/17 06:00 05/16/17 08:43 05/16/17 06:00 - Medications Medications: Current Medications Acetaminophen (Tylenol 325mg Tab) 650 mg PO Q6H PRN; Protocol PRN Reason: Headache Albuterol/Ipratropium (Duoneb 3 Mg/0.5 Mg (3 Ml) Ud) 3 ml IH Q2H PRN; Protocol PRN Reason: Shortness of Breath Last Admin: 05/15/17 11:16 Dose: 3 ml Amlodipine Besylate (Norvasc) 5 mg PO DAILY [facility] PRN Reason: Protocol Last Admin: 05/15/17 11:00 Dose: 5 mg Arformoterol Tartrate (Brovana) 15 mcg IH [id number] [facility] PRN Reason: Protocol Last Admin: 05/16/17 07:37 Dose: 15 mcg Docusate Sodium (Colace) 100 mg PO BID [facility] PRN Reason: Protocol Last Admin: 05/15/17 17:19 Dose: 100 mg Lisinopril (Zestril) 5 mg PO DAILY [facility] Last Admin: 05/15/17 11:00 Dose: 5 mg Megestrol Acetate (Megace) 800 mg PO 0600 [facility] PRN Reason: Protocol Last Admin: 05/16/17 05:59 Dose: 800 mg Metoprolol Tartrate (Lopressor) 25 mg PO 0800,1800 [facility] PRN Reason: Protocol Last Admin: 05/16/17 08:43 Dose: 25 mg - Labs Labs: 05/15/17 07:51 05/15/17 07:51 - Respiratory Exam Respiratory Exam: Clear to Ausculation Bilateral, Prolonged Expiratory Phase - Cardiovascular Exam Cardiovascular Exam: REGULAR RHYTHM - GI/Abdominal Exam GI & Abdominal Exam: Soft, Normal Bowel Sounds - Extremities Exam Extremities Exam: Normal Inspection - Neurological Exam Neurological Exam: Alert, Awake - Skin Skin Exam: Dry, Warm Assessment and Plan (1) Syncope Status: Resolved (2) Hyponatremia Status: Resolved (3) Hypertension Status: Chronic (4) COPD (chronic obstructive pulmonary disease) Status: Chronic - Assessment and Plan (Free Text) Plan: continue fluid restriction, monito lytes, nephrology follow-up, physical therapy and social work for discharge planning
[2017-05-17] MEDS: Megestrol Acetate 40 mg/ml Cup PO SCH (05:06)
[2017-05-17] MEDS: Arformoterol 15 mcg/2 ml Inh Sol IH SCH ×2 (07:32→19:41)
--- NOTE | 2017-05-17 10:05 | CP.PCM.PN ---
Subjective - Date & Time of Evaluation Date of Evaluation: 05/17/17 Time of Evaluation: 09:30 - Subjective Subjective: NAD, denies chest pain, no SOB Objective - Vital Signs/Intake and Output Vital Signs (last 24 hours): Temp Pulse Resp BP Pulse Ox 98.3 F 82 15 123/59 L 97 05/16/17 17:47 05/17/17 09:25 05/16/17 17:47 05/17/17 09:25 05/16/17 17:47 - Medications Medications: Current Medications Acetaminophen (Tylenol 325mg Tab) 650 mg PO Q6H PRN; Protocol PRN Reason: Headache Albuterol/Ipratropium (Duoneb 3 Mg/0.5 Mg (3 Ml) Ud) 3 ml IH Q2H PRN; Protocol PRN Reason: Shortness of Breath Last Admin: 05/15/17 11:16 Dose: 3 ml Amlodipine Besylate (Norvasc) 5 mg PO DAILY [facility] PRN Reason: Protocol Last Admin: 05/17/17 09:25 Dose: 5 mg Arformoterol Tartrate (Brovana) 15 mcg IH [id number] [facility] PRN Reason: Protocol Last Admin: 05/17/17 07:32 Dose: 15 mcg Docusate Sodium (Colace) 100 mg PO BID [facility] PRN Reason: Protocol Last Admin: 05/17/17 09:24 Dose: 100 mg Lisinopril (Zestril) 5 mg PO DAILY [facility] Last Admin: 05/17/17 09:25 Dose: 5 mg Megestrol Acetate (Megace) 800 mg PO 0600 [facility] PRN Reason: Protocol Last Admin: 05/17/17 05:06 Dose: 800 mg Metoprolol Tartrate (Lopressor) 25 mg PO 0800,1800 [facility] PRN Reason: Protocol Last Admin: 05/17/17 08:25 Dose: 25 mg - Labs Labs: 05/15/17 07:51 05/15/17 07:51 - Respiratory Exam Respiratory Exam: Clear to Ausculation Bilateral, NORMAL BREATHING PATTERN - Cardiovascular Exam Cardiovascular Exam: REGULAR RHYTHM - GI/Abdominal Exam GI & Abdominal Exam: Soft, Normal Bowel Sounds - Extremities Exam Extremities Exam: Normal Inspection - Neurological Exam Neurological Exam: Alert, Awake - Skin Skin Exam: Dry, Warm Assessment and Plan (1) Syncope Status: Resolved (2) Hyponatremia Status: Resolved (3) Hypertension Status: Chronic (4) COPD (chronic obstructive pulmonary disease) Status: Chronic - Assessment and Plan (Free Text) Plan: continue physical therapy, social wotk for discharge planning
[2017-05-18] MEDS: Megestrol Acetate 40 mg/ml Cup PO SCH (06:25)
[2017-05-18] MEDS: Arformoterol 15 mcg/2 ml Inh Sol IH SCH ×2 (07:24→20:29)
--- NOTE | 2017-05-18 13:08 | CP.PCM.PN ---
Subjective - Date & Time of Evaluation Date of Evaluation: 05/18/17 Time of Evaluation: 06:30 - Subjective Subjective: NAD, no chest pain, no SOB, OOB ambulating Objective - Vital Signs/Intake and Output Vital Signs (last 24 hours): Temp Pulse Resp BP Pulse Ox 98.3 F 104 H 22 125/78 99 05/17/17 16:22 05/17/17 17:41 05/17/17 16:22 05/18/17 09:05 05/17/17 16:22 - Medications Medications: Current Medications Acetaminophen (Tylenol 325mg Tab) 650 mg PO Q6H PRN; Protocol PRN Reason: Headache Albuterol/Ipratropium (Duoneb 3 Mg/0.5 Mg (3 Ml) Ud) 3 ml IH Q2H PRN; Protocol PRN Reason: Shortness of Breath Last Admin: 05/15/17 11:16 Dose: 3 ml Amlodipine Besylate (Norvasc) 5 mg PO DAILY VLADISLAV PRN Reason: Protocol Last Admin: 05/18/17 09:06 Dose: 5 mg Arformoterol Tartrate (Brovana) 15 mcg IH [id number] VLADISLAV PRN Reason: Protocol Last Admin: 05/18/17 07:24 Dose: 15 mcg Docusate Sodium (Colace) 100 mg PO BID VLADISLAV PRN Reason: Protocol Last Admin: 05/18/17 09:06 Dose: 100 mg Lisinopril (Zestril) 5 mg PO DAILY [facility] Last Admin: 05/18/17 09:05 Dose: 5 mg Megestrol Acetate (Megace) 800 mg PO 0600 [facility] PRN Reason: Protocol Last Admin: 05/18/17 06:25 Dose: 800 mg Metoprolol Tartrate (Lopressor) 25 mg PO 0800,1800 [facility] PRN Reason: Protocol Last Admin: 05/18/17 09:05 Dose: 25 mg - Labs Labs: 05/15/17 07:51 05/15/17 07:51 - Respiratory Exam Respiratory Exam: Clear to Ausculation Bilateral, NORMAL BREATHING PATTERN - Cardiovascular Exam Cardiovascular Exam: REGULAR RHYTHM - GI/Abdominal Exam GI & Abdominal Exam: Soft, Normal Bowel Sounds - Extremities Exam Extremities Exam: Normal Inspection - Neurological Exam Neurological Exam: Alert, Awake - Skin Skin Exam: Dry, Warm Assessment and Plan (1) Syncope Status: Resolved (2) Hyponatremia Status: Resolved (3) Hypertension Status: Chronic (4) COPD (chronic obstructive pulmonary disease) Status: Chronic - Assessment and Plan (Free Text) Plan: continue rehab, for discharge to home in am
[2017-05-19] MEDS: Megestrol Acetate 40 mg/ml Cup PO SCH (05:54)
[2017-05-19] MEDS: Arformoterol 15 mcg/2 ml Inh Sol IH SCH (07:46)
[2017-05-19 14:56] VITALS: BP 140/76; PULSE 63; RESP 16; TEMP 97; O2SAT 100
--- NOTE | 2017-05-20 02:07 | DS ---
HOSPITAL COURSE: The patient is an 81-year-old male who was admitted to the transitional care unit for subacute rehab, status post hospitalization for syncope. The patient had an uneventful course in the transitional care unit and is now medically stable for discharge to home. PHYSICAL EXAMINATION: VITAL SIGNS: Blood pressure 138/57, pulse 88, temperature 98, respiratory rate 20. LUNGS: Clear. HEART: Regular rate and rhythm. ABDOMEN: Soft, nontender. Bowel sounds are normoactive. EXTREMITIES: Without cyanosis, clubbing or edema. NEUROLOGIC: The patient is awake and oriented x3 without focal, sensory, or motor deficits. SKIN: Warm and dry. IMPRESSION: 1. Syncope. 2. Hyponatremia secondary to syndrome of inappropriate antidiuretic hormone secretion, improved. 3. Chronic obstructive pulmonary disease. 4. Hypertension. 5. Gastroesophageal reflux disease. PLAN: The patient will be discharged to home on the following medications: Lopressor 12.5 mg twice daily, lisinopril 5 mg daily, amlodipine 5 mg daily, Advair Diskus 250/50, one inhalation twice daily. The patient will be maintained on a heart healthy diet. Activity is ad libitum. The patient will be followed in the office within the next 1 to 2 weeks. SHARI Matute MD
== END 2017-05-19 17:04 | disposition home or self-care (01) | DRG 312 ==
LOC: TRCU 18:47
PROVIDERS: ADMIT Internal Medicine; ATTEND Internal Medicine
PROC: F07Z9FZ Gait Training/Functional Ambulation Treatment using Assistive, Adaptive, Supportive or Protective Equipment (ICD-10-PCS; principal; 2017-05-12)
PROC: F07M6ZZ Therapeutic Exercise Treatment of Musculoskeletal System - Whole Body (ICD-10-PCS; 2017-05-12)
PROC: F08Z2ZZ Grooming/Personal Hygiene Treatment (ICD-10-PCS; 2017-05-12)
PROC: F08Z1ZZ Dressing Techniques Treatment (ICD-10-PCS; 2017-05-12)
DX: R55 Syncope and collapse (principal); E22.2 Syndrome of inappropriate secretion of antidiuretic hormone; J44.9 Chronic obstructive pulmonary disease, unspecified; I10 Essential (primary) hypertension; K21.9 Gastro-esophageal reflux disease without esophagitis; Z87.891 Personal history of nicotine dependence

== ENCOUNTER 2017-07-15 08:14 | Inpatient (IN) | payer MEDICARE, OTHER ==
[2017-07-15 08:15] VITALS: BMI 25.0
--- NOTE | 2017-07-15 09:06 | ED PDOC ---
Arrival/HPI - General Chief Complaint: Trauma Time Seen by Provider: 07/15/17 08:53 Historian: Patient, Family - History of Present Illness Narrative History of Present Illness (Text): 07/15/17 09:00 A 81 year old male, whose past medical history includes multiple frequent falls , COPD on home oxygen 2L, hypertension, and GERD, presents to the emergency department status post fall after a friend found his laying on the floor out of bed. The patient states that he must have fell out of bed because when he woke up, he woke up to his friend lifting him off the ground. The patient states that he is unsure if he hit his head or LOC. The patient is currently complaining of right sided midsternal chest pain from fall and left ankle pain. The patient denies any significant cardiac or pulmonary symptoms including palpitations, shortness of breath, or any other complaints at this time. 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 Biopsy of vocal cord nodule - Anesthesia Hx Anesthesia Reactions: No Hx Malignant Hyperthermia: No - Suicidal Assessment Feels Threatened In Home Enviroment: No Family/Social History - Physician Review Nursing Documentation Reviewed: Yes Family/Social History: No Known Family HX Smoking Status: Former Smoker Hx Alcohol Use: Yes Hx Substance Use: No Hx Substance Use Treatment: No Allergies/Home Meds Allergies/Adverse Reactions: Allergies No Known Allergies Allergy (Verified 07/15/17 08:29) Home Medications: Home Meds Medication Instructions Recorded Confirmed Unobtainable 07/15/17 07/15/17 Review of Systems - Physician Review All systems were reviewed & negative as marked: Yes - Review of Systems Respiratory: absent: SOB Cardiovascular: Chest Pain. absent: Palpitations Musculoskeletal: Other (left ankle pain ) Physical Exam Vital Signs Reviewed: Yes Vital Signs Temp Pulse Resp BP Pulse Ox 07/15/17 10:15 112 H 20 155/72 H 92 L 07/15/17 08:38 98.4 F 116 H 18 168/92 H 97 Temperature: Afebrile Blood Pressure: Hypertensive Pulse: Tachycardic Respiratory Rate: Normal Appearance: Positive for: Well-Appearing, Non-Toxic, Comfortable Pain Distress: None Mental Status: Positive for: Alert and Oriented X 3 - Systems Exam Head: Present: Atraumatic, Normocephalic Pupils: Present: PERRL Extroacular Muscles: Present: EOMI Conjunctiva: Present: Normal Ears: Present: Other (ecchymosis to right eye ) Mouth: Present: Moist Mucous Membranes Nose (Internal): Present: Other (blood about right nare ) Neck: Present: Normal Range of Motion Respiratory/Chest: Present: Good Air Exchange, Rhonchi (occasional rhonchi I/E ratio), Tender to Palpation (tender to right sternal border ). No: Respiratory Distress, Accessory Muscle Use Cardiovascular: Present: Regular Rate and Rhythm, Normal S1, S2. No: Murmurs Abdomen: Present: Normal Bowel Sounds, Other (possile dried feces on abdomen ). No: Tenderness, Distention, Peritoneal Signs Back: Present: Normal Inspection Upper Extremity: Present: Normal Inspection. No: Cyanosis, Edema Lower Extremity: Present: Normal Inspection, Other (left lower lateral malleolus pain along posterior aspects; 2 cm cellulitis ). No: Edema Neurological: Present: GCS=15, CN II-XII Intact, Speech Normal Skin: Present: Warm, Dry, Normal Color. No: Rashes Psychiatric: Present: Alert, Oriented x 3, Normal Insight, Normal Concentration Medical Decision Making ED Course and Treatment: 07/15/17 09:05 Impression: A 81 year old male status post fall. Differential Diagnosis included but are not limited to: Plan: -- Head CT -- Maxillofacial CT -- EKG -- Chest X-ray -- Radiology: Left ankle, Pelvis -- Labs -- Tylenol -- Urinalysis -- Reassess and disposition Progress Notes: 07/15/17 12:44 st @ 120 bpm no acute ischemic st-t segments nor arrhythmogenic intervals . Pt without evidence of EOM limitation nor entrapment. Ophthlmology eceommended oculoplastics if patient develops any other eom entrapment (especially upward gaze limitation) lasting a week out. - Lab Interpretations Lab Results: 07/15/17 09:10 07/15/17 09:10 Lab Results 07/15/17 09:10: PT 11.2, INR 1.02, APTT 29.7 07/15/17 09:10: Sodium 137, Potassium 5.1 H, Chloride 91 L, Carbon Dioxide 37 H , Anion Gap 14, BUN 8, Creatinine 0.6 L, Est GFR ( Amer) > 60, Est GFR ( Non-Af Amer) > 60, Random Glucose 133 H, Calcium 9.5, Total Bilirubin 0.6, AST 33, ALT 32, Alkaline Phosphatase 93, Troponin I 0.01, Total Protein 7.5, Albumin 4.2, Globulin 3.3, Albumin/Globulin Ratio 1.3 07/15/17 09:10: WBC 9.6 D, RBC 5.22, Hgb 16.6 D, Hct 49.7, MCV 95.2, MCH 31.8 , MCHC 33.4, RDW 14.7 H, Plt Count 211, MPV 9.6, Gran % 70.1 H, Lymph % (Auto) 18.6 L, Collier % (Auto) 9.3 H, Eos % (Auto) 1.6, Baso % (Auto) 0.4, Gran # 6.76 H , Lymph # 1.8, Collier # 0.9 H, Eos # 0.2, Baso # 0.04 - RAD Interpretation Radiology Orders: 07/15/17 08:57 HEAD W/O CONTRAST [CT] Stat MAXILLOFACIAL W/O CONTRAST [CT] Stat 07/15/17 08:58 CHEST TWO VIEWS (PA/LAT) [RAD] Stat ANKLE LEFT 3 VIEWS ROUTINE [RAD] Stat PELVIS ONE VIEW [RAD] Stat - Medication Orders Current Medication Orders: Discontinued Medications Acetaminophen (Tylenol 325mg Tab) 650 mg PO STAT STA Stop: 07/15/17 09:00 Last Admin: 07/15/17 09:21 Dose: 650 mg MAR Pain/Vitals Document 07/15/17 09:21 JOL (Rec: 07/15/17 09:22 JOL [id number]) Pain Reassessment Is This A Pain ReAssessment? No Sleep Is patient sleeping during reassessment? No Presence of Pain Presence of Pain Yes Pain Scale Used Pain Scale Used Numeric Location Left, Right or Bilateral Right Pain Location Body Site Ankle Intensity 5 Scale Used Numeric - Scribe Statement The provider has reviewed the documentation as recorded by the Jayashree Odell Provider Scribe Attestation: All medical record entries made by the Scribe were at my direction and personally dictated by me. I have reviewed the chart and agree that the record accurately reflects my personal performance of the history, physical exam, medical decision making, and the department course for this patient. I have also personally directed, reviewed, and agree with the discharge instructions and disposition. Disposition/Present on Arrival - Present on Arrival History of DVT/PE: No History of Uncontrolled Diabetes: No Urinary Catheter: No History of Decub. Ulcer: No History Surgical Site Infection Following: None - Disposition Referrals: Robert Fisher JD, MD [Primary Care Provider] - Follow up with primary Forms: [employer] (Tongan)
[2017-07-15 09:23] LABS: BASO # 0.04 K/mm3 (0.0-2.0); BASO % 0.4 % (0.0-3.0); EOS # 0.2 (0.0-0.7); EOS % 1.6 % (1.5-5.0); GRAN # 6.76 (1.4-6.5); GRAN % 70.1 % (50.0-68.0); HEMATOCRIT 49.7 % (42.0-52.0); LYMPH # 1.8 (1.2-3.4); LYMPH % 18.6 % (22.0-35.0); MEAN CELL VOLUME 95.2 fl (80.0-105.0); MEAN CORPUSCULAR HEMOGLOBIN 31.8 pg (25.0-35.0); MEAN CORPUSCULAR HGB CONC 33.4 g/dl (31.0-37.0); MEAN PLATELET VOLUME 9.6 fl (7.0-11.0); MONO # 0.9 (0.1-0.6); MONO % 9.3 % (1.0-6.0); RED CELL DISTRIBUTION WIDTH 14.7 % (11.5-14.5); WHITE BLOOD COUNT 9.6 10^3/ul (4.5-11.0)
[2017-07-15 09:33] LABS: ALB/GLOB RATIO 1.3 (1.1-1.8); ALKALINE PHOSPHATASE 93 U/L (38-126); ALT/SGPT 32 U/L (7-56); AST/SGOT 33 U/L (17-59); BILIRUBIN,TOTAL 0.6 mg/dL (0.2-1.3); BLOOD UREA NITROGEN 8 mg/dL (7-21); CALCIUM 9.5 mg/dL (8.4-10.5); CARBON DIOXIDE 37 mmol/L (21-33); CHLORIDE 91 mmol/L (98-107); GFR AFRICAN-AMERICAN > 60; GLUCOSE,RANDOM 133 mg/dL (70-110); INR 1.02 (0.93-1.08); PARTIAL THROMBOPLASTIN TIME 29.7 Seconds (25.1-36.5); POTASSIUM 5.1 mmol/L (3.6-5.0); SODIUM 137 mmol/L (132-148); TOTAL PROTEIN 7.5 g/dL (5.8-8.3)
[2017-07-15 09:44] LABS: TROPONIN I 0.01 ng/mL
--- NOTE | 2017-07-15 10:47 | CT ---
PROCEDURE: CT HEAD WITHOUT CONTRAST. HISTORY: s/p fall COMPARISON: 05/06/2017 CT TECHNIQUE: Axial computed tomography images were obtained through the head/brain without intravenous contrast. Radiation dose: Total exam DLP = 871 mGy-cm. This CT exam was performed using one or more of the following dose reduction techniques: Automated exposure control, adjustment of the mA and/or kV according to patient size, and/or use of iterative reconstruction technique. FINDINGS: HEMORRHAGE: No intracranial hemorrhage. BRAIN: Severe chronic microvascular changes are seen there is mild atrophy. No acute findings VENTRICLES: Unremarkable. No hydrocephalus. CALVARIUM: Unremarkable. PARANASAL SINUSES: Unremarkable as visualized. No significant inflammatory changes. MASTOID AIR CELLS: Unremarkable as visualized. No inflammatory changes. OTHER FINDINGS: None. IMPRESSION: No acute intracranial findings
--- NOTE | 2017-07-15 11:55 | CT ---
PROCEDURE: CT MAXILLOFACIAL BONES WITHOUT CONTRAST HISTORY: fall COMPARISON: None TECHNIQUE: Contiguous axial CT images of the maxillofacial bones were obtained. Coronal and sagittal reformats were generated. Radiation dose: Total exam DLP = 831 mGy-cm. This CT exam was performed using one or more of the following dose reduction techniques: Automated exposure control, adjustment of the mA and/or kV according to patient size, and/or use of iterative reconstruction technique. FINDINGS: NASAL BONES: Unremarkable. ORBITS: There is an orbital blowout fracture on the right with herniation of orbital fat into the fracture defect. The findings are best demonstrated on coronal image 62 series 601. The findings were discussed with Dr. Martinez at 11:50 a.m. PARANASAL SINUSES/ MASTOIDS: There is partial opacification of the ethmoid sinuses. There is a fluid level in the right maxillary sinus MAXILLA: Unremarkable. MANDIBLE/ TEMPOROMANDIBULAR JOINTS: Unremarkable. SKULL BASE: Unremarkable. TEMPORAL BONES: Middle ears and mastoid grossly unremarkable. OTHER FINDINGS: None. IMPRESSION: Small focal orbital blowout fracture of the inferior wall of the right orbit with herniation of orbital fat.
--- NOTE | 2017-07-15 12:02 | RAD ---
PROCEDURE: Radiographs of the pelvis. HISTORY: s/p fall COMPARISON: None. FINDINGS: BONES: Pelvic Bones: Unremarkable. Hips: Grossly unremarkable. JOINTS: Sacroiliac Joints: Unremarkable. Pubic Symphysis: Unremarkable. OTHER FINDINGS: None. IMPRESSION: Unremarkable radiographs of the pelvis.
--- NOTE | 2017-07-15 12:03 | RAD ---
PROCEDURE: Left Ankle Radiographs. HISTORY: s/p fall COMPARISON: None FINDINGS: BONES: Normal. No fracture. JOINTS: Normal. No osteoarthritis. Ankle mortise maintained. Talar dome intact SOFT TISSUES: Normal. OTHER FINDINGS: None. IMPRESSION: Normal left ankle radiographs.
--- NOTE | 2017-07-15 12:04 | RAD ---
HISTORY: s/p fall COMPARISON: 05/06/2017 TECHNIQUE: Chest PA and lateral FINDINGS: LUNGS: No active pulmonary disease. PLEURA: No significant pleural effusion identified. No pneumothorax apparent. CARDIOVASCULAR: Normal. OSSEOUS STRUCTURES: No significant abnormalities. VISUALIZED UPPER ABDOMEN: Normal. OTHER FINDINGS: None. IMPRESSION: No active disease.
[2017-07-15 14:12] LABS: PH,URINE 7.5 (4.7-8.0); URINE BILIRUBIN SMALL (NEGATIVE); URINE BLOOD NEGATIVE (NEGATIVE); URINE GLUCOSE (UA) NEGATIVE (NEGATIVE); URINE KETONE NEGATIVE (NEGATIVE); URINE LEUKOCYTE ESTERASE NEGATIVE Leu/uL (NEGATIVE); URINE PROTEIN 30 mg/dL (<30 mg/dL)
[2017-07-15 14:17] LABS: URINE APPEARANCE CLEAR (CLEAR); URINE COLOR YELLOW (YELLOW)
[2017-07-15] MEDS ORDERED: Sodium Chloride 0.9% 1,000 ML IV STA (14:22)
--- NOTE | 2017-07-15 17:06 | CARD ---
APPROVED REPORT EKG Measurement Heart [id number] <Conclusion> Sinus tachycardia Nonspecific ST abnormality Abnormal ECG
[2017-07-16 06:03] LABS: BASO # 0.02 K/mm3 (0.0-2.0); BASO % 0.3 % (0.0-3.0); EOS # 0.3 (0.0-0.7); EOS % 3.7 % (1.5-5.0); GRAN # 4.16 (1.4-6.5); GRAN % 56.7 % (50.0-68.0); LYMPH # 2.2 (1.2-3.4); LYMPH % 29.3 % (22.0-35.0); MEAN CELL VOLUME 96.2 fl (80.0-105.0); MEAN CORPUSCULAR HEMOGLOBIN 31.2 pg (25.0-35.0); MEAN CORPUSCULAR HGB CONC 32.4 g/dl (31.0-37.0); MEAN PLATELET VOLUME 9.8 fl (7.0-11.0); MONO # 0.7 (0.1-0.6); RED CELL DISTRIBUTION WIDTH 14.7 % (11.5-14.5); WHITE BLOOD COUNT 7.3 10^3/ul (4.5-11.0)
[2017-07-16 07:15] LABS: ALB/GLOB RATIO 1.3 (1.1-1.8); ALKALINE PHOSPHATASE 81 U/L (38-126); ALT/SGPT 23 U/L (7-56); AST/SGOT 26 U/L (17-59); BLOOD UREA NITROGEN 11 mg/dL (7-21); CALCIUM 8.9 mg/dL (8.4-10.5); CARBON DIOXIDE 32 mmol/L (21-33); CHLORIDE 95 mmol/L (98-107); GFR AFRICAN-AMERICAN > 60; GLUCOSE,RANDOM 110 mg/dL (70-110); POTASSIUM 4.4 mmol/L (3.6-5.0); SODIUM 133 mmol/L (132-148); TOTAL PROTEIN 6.5 g/dL (5.8-8.3)
[2017-07-16] MEDS: Metoprolol Succinate 25 mg XL Tab PO SCH (09:53)
--- NOTE | 2017-07-16 12:51 | HP ---
HISTORY OF PRESENT ILLNESS: The patient is an 81-year-old male admitted to telemetry unit through the Emergency Department on 07/15/2017 after a syncopal episode. The patient admits to drinking and falling out of bed and he sustained a small orbital blowout fracture of the inferior wall of the right orbit. He is now admitted for further evaluation and management. PAST MEDICAL HISTORY: Includes COPD secondary to tobacco, hypertension, GERD, and degenerative joint disease. PAST SURGICAL HISTORY: The patient has no significant past surgical history. ALLERGIES: THE PATIENT HAS NO KNOWN DRUG ALLERGIES. CURRENT MEDICATIONS: Include metoprolol tartrate 25 mg daily. SOCIAL HISTORY: The patient has a history of tobacco use and quit several years ago. He drinks approximately three to four glasses of wine per day. There is no history of drug use. REVIEW OF SYSTEMS: The patient denies any chest pain. The patient has dyspnea on exertion. There is no shortness of breath. No cough. No fever. No chills. PHYSICAL EXAMINATION: GENERAL: The patient is a well-developed somewhat obese male, in no acute distress. VITAL SIGNS: Blood pressure 133/74, temperature 97.9, pulse 90, and respiratory rate 18. HEENT: Head is normocephalic and atraumatic. Pupils are equal, round and reactive to light. Extraocular movements intact. NECK: Supple. No thyromegaly. No carotid bruit. No adenopathy. LUNGS: Show few scattered crepitations at the bases. HEART: Regular rate and rhythm. ABDOMEN: Soft, nontender, and somewhat obese. Bowel sounds are normoactive. EXTREMITIES: Without cyanosis, clubbing or edema. NEUROLOGIC: The patient is awake and oriented x3 without focal, sensory or motor deficits. Gait is ataxic. SKIN: Warm and dry. LABORATORY DATA: WBC 7.3, hemoglobin 14.9, and hematocrit 46.0. Sodium 133, potassium 4.4, chloride 95, CO2 32, BUN 11, creatinine 0.5, and glucose 110. IMPRESSION: 1. Recurrent syncope. 2. Chronic obstructive pulmonary disease. 3. Hypertension. 4. Gastroesophageal reflux disease. 5. Possible alcohol abuse. PLAN: The patient is admitted to the telemetry unit. We will obtain Cardiology consultation with Dr. Gallego/Dr. Dowling and Neurology consultation with Dr. Cardoso. Physical therapy evaluation and treatment. Social work for discharge planning. SHARI Matute MD [facility] # [phone]
--- NOTE | 2017-07-17 00:16 | CON ---
DATE: 07/16/2017 REASON FOR CONSULTATION AND FOLLOWUP: Frequent fall, cardiac evaluation, rule out syncope. BRIEF MEDICAL HISTORY: This is an 81-year-old male with past medical history significant for multiple falls; COPD, on home oxygen. He states that he was found on the floor himself, denies any chest pain, the patient has no recollection, just keep on falling. He is not sure if he lost his consciousness or not. PAST MEDICAL HISTORY: Significant for multiple and frequent falls, COPD secondary to tobacco abuse, hypertension, gastroesophageal reflux disease, degenerative joint disease, on home oxygen 2 liters. PAST SURGICAL HISTORY: No significant past surgical history. ALLERGIES: THE PATIENT HAS NO KNOWN DRUG ALLERGY. CURRENT MEDICATIONS: The patient is taking metoprolol tartrate 25 mg daily b.i.d. REVIEW OF SYSTEMS: As per HPI. PHYSICAL EXAMINATION VITAL SIGNS: As follows, temperature afebrile, heart rate 75, and blood pressure 144/78. HEENT: PERRLA. Extraocular muscles intact. NECK: Supple. No carotid bruit or thyromegaly. CHEST: Clear to auscultation. HEART: S1 and S2 regular. ABDOMEN: Soft. EXTREMITIES: Clubbing and cyanosis negative. LABORATORY DATA: Blood workup as follows, WBC 7.3, hemoglobin 14.9, hematocrit 46.0, and platelet count 199. Chemistry shows sodium 133, potassium 4.4, chloride 95, carbon dioxide 32, anion gap of 11, BUN 11, and creatinine 0.5. IMPRESSION: Frequent fall, rule out orthostatic hypotension, rule out any structural heart disease, so far troponin remains negative. The patient has been here for multiple times admission, he was seen by neurologist in the past. History of alcohol abuse, history of drinking alcohol, two glasses of wine everyday, and no further neurologic workup is recommended at that time. We will review all previous workup and previously any cardiac noninvasive workup was done in the past. The patient's EKG showed sinus tach APCs. We will continue metoprolol until we will get an echo to assess any structural heart disease. We will also add lipid profile, TSH, and hemoglobin A1c. Further recommendation depend upon the hospital course. We will follow with you. Thank you, Dr. Fisher, for providing me the opportunity in taking care of the patient, Finn Ferreira. Angeli Dowling MD
[2017-07-17 06:17] LABS: BASO # 0.02 K/mm3 (0.0-2.0); BASO % 0.3 % (0.0-3.0); EOS # 0.4 (0.0-0.7); EOS % 5.3 % (1.5-5.0); GRAN # 4.53 (1.4-6.5); HEMATOCRIT 45.1 % (42.0-52.0); LYMPH # 1.6 (1.2-3.4); LYMPH % 22.5 % (22.0-35.0); MEAN CELL VOLUME 95.6 fl (80.0-105.0); MEAN CORPUSCULAR HEMOGLOBIN 31.6 pg (25.0-35.0); MONO # 0.7 (0.1-0.6); MONO % 9.9 % (1.0-6.0); RED CELL DISTRIBUTION WIDTH 14.5 % (11.5-14.5); WHITE BLOOD COUNT 7.3 10^3/ul (4.5-11.0)
[2017-07-17 06:38] LABS: ALB/GLOB RATIO 1.2 (1.1-1.8); ALKALINE PHOSPHATASE 74 U/L (38-126); ALT/SGPT 25 U/L (7-56); AST/SGOT 28 U/L (17-59); BILIRUBIN,TOTAL 0.9 mg/dL (0.2-1.3); BLOOD UREA NITROGEN 13 mg/dL (7-21); CALCIUM 9.1 mg/dL (8.4-10.5); CARBON DIOXIDE 32 mmol/L (21-33); CHLORIDE 94 mmol/L (98-107); CHOLESTEROL 90 mg/dL (130-200); GFR AFRICAN-AMERICAN > 60; GLUCOSE,RANDOM 107 mg/dL (70-110); MAGNESIUM 1.8 mg/dL (1.7-2.2); PHOSPHOROUS 3.7 mg/dL (2.5-4.5); POTASSIUM 4.1 mmol/L (3.6-5.0); SODIUM 133 mmol/L (132-148); TOTAL PROTEIN 6.8 g/dL (5.8-8.3)
[2017-07-17] MEDS: Metoprolol Succinate 25 mg XL Tab PO SCH (09:02)
--- NOTE | 2017-07-17 12:50 | PN ---
DATE: 07/17/2017 REASON FOR CONSULTATION AND FOLLOWUP: Syncope, status post fall. SUBJECTIVE: The patient denies any chest pain, shortness of breath or any palpitations. OBJECTIVE: GENERAL: Not in apparent distress, lying flat in the bed. VITAL SIGNS: Temperature 98, heart rate 87, blood pressure 154/82. HEENT: PERRLA intact. NECK: Supple. No carotid bruits or thyromegaly. CHEST: Clear to auscultation. HEART: S1 and S2, regular. ABDOMEN: Soft. EXTREMITIES: Clubbing and cyanosis negative. LABORATORY DATA: Blood workup as follows: WBC 7.3, hemoglobin 14.9, hematocrit 45.1, platelet count 180. Chemistry shows sodium 130, potassium 4.0, chloride 94, carbon dioxide 32, anion gap of 11, BUN 13, creatinine 0.5, TSH 1.88. IMPRESSION: An 81-year-old male with past medical history significant for chronic obstructive pulmonary disease, hypertension, gastroesophageal reflux disease, degenerative joint disease, who found himself on the floor on the bed, possible syncope. The patient does not recall any event. So far, no evidence of acute myocardial infarction, history of hypertension. RECOMMENDATION: Orthostatic blood pressure, echo to assess LV function, rule out any aortic stenosis. Further recommendations depending upon hospital course. We will follow with you. Thank you, Dr. Fisher, for providing me the opportunity in taking care of the patient, Finn Ferreira. We will follow with you. 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 Angeli Dowling MD
--- NOTE | 2017-07-17 18:51 | PN ---
DATE: 07/17/2017 NEUROLOGY FOLLOWUP CHIEF COMPLAINT: Syncope status post fall. SUBJECTIVE: The patient is seen and examined at the bedside. Denies any chest pain or shortness of breath or any palpitations. No further syncopal events. He is mildly orthostatic from lying to standing, while lying it was 110/50 mmHg and standing it was 150/92. No acute events overnight. PAST MEDICAL HISTORY: History of hypertension, COPD, gastroesophageal reflux disease, degenerative joint disease. SOCIAL HISTORY: Drinks occasionally. Nonsmoker. No illicit drug use. ALLERGIES: NO KNOWN DRUG ALLERGIES. MEDICATIONS: Reviewed by nurse per reconciliation sheet. REVIEW OF SYSTEMS: A 14-point review of systems negative as mentioned in the HPI. PHYSICAL EXAMINATION: GENERAL: The patient is seen up in bed, in no acute distress. VITAL SIGNS: Temperature 97.1, blood pressure 150/80, respiratory rate of 19, oxygen saturation 95% on room air. HEENT: Head is atraumatic and normocephalic. PERRLA. Extraocular muscles are intact. NECK: Supple. No JVD. No adenopathy noted. LUNGS: Clear to auscultation. No adventitious sounds. HEART: S1 and S2. Normal rate, normal rhythm. No murmurs, rubs, or gallops. ABDOMEN: Soft, nontender and nondistended. Bowel sounds are present. EXTREMITIES: No clubbing. No cyanosis. Peripheral pulses are 2+ bilaterally. NEUROLOGIC: The patient is alert, oriented to person, place, month, and year. Recall after 5 minutes is 0 out of 3. Poor attention span. Slow thought process. Cranial nerves II through XII are intact. Motor exam: Moves all extremities equally. No pronator drift seen. Sensory exam: Decreased light touch, pinprick, and proprioception up to the calves bilaterally; decreased vibration of the toes. DTRs are 1+ throughout. Coordination: Aqhwlh-vn-wavq intact. Gait is deferred for now. No tremors are seen. LABORATORY DATA: Today, his blood sugar is 156, sodium is 133, potassium 4.1, chloride 94, carbon dioxide 32, BUN of 13, creatinine of 0.5, random glucose 107, and A1c of 5.3. ASSESSMENT AND PLAN: This is an 81-year-old male with past medical history of degenerative joint disease, chronic obstructive pulmonary disease, hypertension, gastroesophageal reflux disease, was accidentally found himself off the bed, possibly fell off the bed. He was also drinking, was admitted for possible syncope. No recollection of the event. His fall most likely seems mechanical in nature, but he is mildly orthostatic from lying to standing. RECOMMENDATIONS: At this time, we recommend: 1. Physical and occupational therapy. 2. An echocardiogram. 3. Hydration since he was mildly dehydrated. 4. Avoid sedative medications. 5. Could recommend PT/OT for possible subacute rehab. Once again, thank you for this followup. Damien Cardoso MD
--- NOTE | 2017-07-17 21:37 | CP.PCM.PN ---
Subjective - Date & Time of Evaluation Date of Evaluation: 07/17/17 Time of Evaluation: 09:00 - Subjective Subjective: awake and responsive, denies chest pain, no shortness of breath Objective - Vital Signs/Intake and Output Vital Signs (last 24 hours): Temp Pulse Resp BP Pulse Ox 97.1 F L 86 19 150/85 94 L 07/17/17 17:11 07/17/17 18:00 07/17/17 17:11 07/17/17 17:11 07/17/17 06:00 - Medications Medications: Current Medications Acetaminophen (Tylenol 325mg Tab) 650 mg PO Q6H PRN PRN Reason: Fever >100.4 F Last Admin: 07/17/17 16:22 Dose: 650 mg Metoprolol Succinate (Toprol Xl) 25 mg PO BRK VLADISLAV Last Admin: 07/17/17 09:02 Dose: 25 mg Zolpidem Tartrate (Ambien) 5 mg PO HS PRN; Protocol PRN Reason: Insomnia Last Admin: 07/17/17 21:06 Dose: 5 mg - Labs Labs: 07/17/17 05:55 07/17/17 05:55 PT 11.2 SECONDS (9.4-12.5) 07/15/17 09:10 INR 1.02 (0.93-1.08) 07/15/17 09:10 APTT 29.7 Seconds (25.1-36.5) 07/15/17 09:10 - Respiratory Exam Respiratory Exam: Prolonged Expiratory Phase, Rhonchi - Cardiovascular Exam Cardiovascular Exam: REGULAR RHYTHM - GI/Abdominal Exam GI & Abdominal Exam: Soft, Normal Bowel Sounds - Extremities Exam Extremities Exam: Pedal Edema - Neurological Exam Neurological Exam: Alert, Awake - Skin Skin Exam: Dry, Warm Assessment and Plan (1) Head injury Status: Acute (2) COPD (chronic obstructive pulmonary disease) Status: Chronic (3) Hypertension Status: Chronic (4) Syncope Status: Resolved - Assessment and Plan (Free Text) Plan: continue present neuro & Cardiac work-up, physical therapy, social work for discharge planning, will porbably need VINNIE
[2017-07-18 05:53] VITALS: O2SAT 93
[2017-07-18] MEDS: Metoprolol Succinate 25 mg XL Tab PO SCH (08:07)
--- NOTE | 2017-07-18 11:06 | PN ---
DATE: 07/18/2017 REASON FOR CONSULTATION AND FOLLOWUP: Syncope, status post fall. SUBJECTIVE: The patient denies any chest pain, shortness of breath, or any palpitations. PHYSICAL EXAMINATION: GENERAL: Not in apparent distress, lying flat in the bed. VITAL SIGNS: Temperature afebrile, heart rate 78, blood pressure 142/82. HEENT: PERRLA. Extraocular muscles intact. NECK: Supple. No carotid bruits or thyromegaly. CHEST: Clear to auscultation. HEART: S1 and S2, regular. A 3/6 systolic . ABDOMEN: Soft. EXTREMITIES: Clubbing and cyanosis negative. LABORATORY DATA: Blood workup as follows: WBC , hemoglobin 14.9, hematocrit 45.1, platelet count 180. Chemistry shows sodium yesterday 130, potassium 4.0, chloride 94, carbon dioxide 32, anion gap 11, BUN 13, creatinine 0.5. IMPRESSION: Status post fall, chronic obstructive pulmonary disease, obesity, hypertension, gastroesophageal reflux, syncope. No evidence of myocardial infarction. Rule out aortic stenosis, rule out orthostatic hypotension. RECOMMENDATION: Yesterday, orthostatic was checked, no evidence of orthostatic hypotension. Lying blood pressure 110/50, sitting 162/102, standing 156/92. Continue low-dose beta-percy. The patient is hypertensive, we will add 5 mg of Norvasc. We will review the echo. Thank you, Dr. Fisher, for providing me the opportunity in taking care of the patient, Finn Ferreira. Angeli Dowling MD
[2017-07-18 11:31] VITALS: BP 131/78; PULSE 77; RESP 18; TEMP 98.2
[2017-07-18] MEDS ORDERED: Influenza Vaccine 60 mcg/0.5 mL SYR (4YR UP) IM ONE (14:37)
[2017-07-18] MEDS ORDERED: Pneumococcal 23-Valent Vaccine IM ONE (14:38)
--- NOTE | 2017-07-18 18:27 | CARD ---
APPROVED REPORT EXAM: Two-dimensional and M-mode echocardiogram with Doppler and color Doppler. INDICATION Syncope 2D DIMENSIONS IVSd1.0 (0.7-1.1cm)LVDd4.4 (3.9-5.9cm) PWd1.1 (0.7-1.1cm)LVDs3.0 (2.5-4.0cm) FS (%) 32.4 %LVEF (%)61.0 (>50%) M-Mode DIMENSIONS Aortic Root3.50 (2.2-3.7cm)Aortic Cusp Exc.1.50 (1.5-2.0cm) Aortic Valve AoV Peak Dufwdiyq172.0cm/Tom Peak GR.7mmHgLVOT Peak Erntaxqr808.0cm/s LVOT VTI24.80cm Mitral Valve MV E Mtgmlcpw73.0cm/sMV A Xagnzipe983.0cm/sE/A ratio0.7 TDI Lateral E' Peak V12.10cm/sMedial E' Peak V6.82cm/sE/Lateral E'6.0 E/Medial E'10.6 Pulmonary Valve PV Peak Uaxwhjgo18.7cm/sPV Peak Grad.2mmHg Tricuspid Valve TR Peak Cwcnjgnm105ra/sRAP EFZMGJMF92lfQhEI Peak Gr.55mmHg YCOQ89fgSq LEFT VENTRICLE The left ventricle is normal size. There is borderline concentric left ventricular hypertrophy. The left ventricular function is normal.EF-60-65% There is normal LV segmental wall motion. Transmitral Doppler flow pattern is Grade III-reversible restrictive diastolic dysfunction. No left ventricle thrombus noted on this study. There is no ventricular septal defect visualized. There is no left ventricular aneurysm. There is no mass noted in the left ventricle. RIGHT VENTRICLE The right ventricle is mildly dilated. The right ventricle is mildly hypertrophied. Systolic function is mildly reduced. ATRIA The left atrium size is normal. The right atrium is mildly dilated. The interatrial septum is intact with no evidence for an atrial septal defect. AORTIC VALVE The aortic valve is thickened but opens well. There is trace aortic regurgitation. Aortic sclerosis VS Mild As There is no aortic valvular vegetation. MITRAL VALVE The mitral valve is thickened but opens well. Mitral annular calcification is moderate. Mitral regurgitation is trace. There is no mitral valve stenosis. There is no evidence of mitral valve prolapse. TRICUSPID VALVE The tricuspid valve leaflets are thickened , but open well. There is mild tricuspid regurgitation.[id number] There is moderate pulmonary hypertension. There is no tricuspid valve stenosis. There is no tricuspid valve prolapse or vegetation. PULMONIC VALVE The pulmonic valve is borderline thickened. There is mild pulmonic valvular regurgitation. There is no pulmonic valvular stenosis. GREAT VESSELS The aortic root is normal in size. The ascending aorta is normal in size. The pulmonary artery is normal. The IVC is normal in size and collapses >50% with inspiration. PERICARDIAL EFFUSION There is no pleural effusion. There is no pericardial effusion. <Conclusion> The left ventricle is normal size. There is borderline concentric left ventricular hypertrophy. The left ventricular function is normal.EF-60-65% There is trace aortic regurgitation. Aortic sclerosis VS Mild As Mitral regurgitation is trace. There is mild tricuspid regurgitation.[id number] There is moderate pulmonary hypertension. The IVC is normal in size and collapses >50% with inspiration. There is no pericardial effusion.
--- NOTE | 2017-07-19 03:37 | DS ---
HOSPITAL COURSE: The patient is an 81-year-old male admitted through the Emergency Department on 07/15/2017 with a recurrent syncopal episode. The patient was admitted to the telemetry unit and has had uneventful hospital course. The patient had been seen by ENT for a blowout fracture of the inferior wall of the right orbit and no further intervention was recommended. The patient is now medically stable for transfer. He was transferred to subacute rehab at [facility]. He denies any chest pain or shortness of breath at the present time. The patient was seen by Neurology and syncope workup was essentially negative. PHYSICAL EXAMINATION: VITAL SIGNS: Blood pressure 131/78, pulse 77, temperature 98.2, respiratory rate 18. LUNGS: Clear. HEART: Regular rate and rhythm. ABDOMEN: Soft, nontender. Bowel sounds are normoactive. EXTREMITIES: Without cyanosis, clubbing or edema. NEUROLOGIC: The patient is awake and oriented x3 without focal sensory motor deficits. Gait is slightly ataxic. SKIN: Warm and dry. IMPRESSION: 1. Recurrent syncope. 2. Small blowout fracture right orbit secondary to #1. 3. Chronic obstructive pulmonary disease. 4. Hypertension. 5. Gastroesophageal reflux disease. The patient will be discharged [facility] on following medications, amlodipine 5 mg daily, Toprol XL 25 mg daily, and Ambien 5 mg at bedtime. He will be maintained on a heart-healthy diet. ACTIVITIES: As per the rehab facility. SHARI Matute MD
--- NOTE | 2017-07-19 19:53 | CON ---
DATE: HISTORY OF PRESENT ILLNESS: This is an 81-year-old male with past medical history of COPD, hypertension and GERD, came to the emergency room following a fall and the patient's friend found him lying on the floor. The patient does not remember how he fell out of the bed and does not remember losing consciousness. No tongue bite. No urinary incontinence. ALLERGIES: NO KNOWN DRUG ALLERGIES. REVIEW OF SYSTEMS: A 10-point review of systems was negative. PHYSICAL EXAMINATION: VITAL SIGNS: Blood pressure 168/92. HEENT: Normocephalic, atraumatic. NECK: Supple. NEUROLOGIC: Awake and oriented to self and place. Cranial nerves II through XII were tested. Pupils reactive. EOM intact. Visual vasquez, full. No facial asymmetry. Tongue midline. Motor examination, moves all the extremities equally. Tone normal. Deep tendon reflexes 1+. Both plantars are downgoing. Sensory appears intact. Cerebellar and gait, deferred. LABORATORY DATA: WBC 9.6, hemoglobin 16.6, hematocrit 49.7 and platelets 211. Sodium 137, potassium 5.1, chloride 91, CO2 of 37, glucose 133, BUN 8, And creatinine 0.6. PLAN: Continue present management. We will follow up. Tarik Cardoso MD
== END 2017-07-18 16:28 | DRG 312 ==
LOC: ED 08:14 → ERH 13:18 → 2RSO 15:47
PROVIDERS: ADMIT Internal Medicine; ATTEND Internal Medicine
DX: R55 Syncope and collapse (principal); S02.31XA Fracture of orbital floor, right side, initial encounter for closed fracture; I10 Essential (primary) hypertension; J44.9 Chronic obstructive pulmonary disease, unspecified; K21.9 Gastro-esophageal reflux disease without esophagitis; M19.90 Unspecified osteoarthritis, unspecified site; W06.XXXA Fall from bed, initial encounter; Z87.891 Personal history of nicotine dependence; Z99.81 Dependence on supplemental oxygen; Y92.092 Bedroom in other non-institutional residence as the place of occurrence of the external cause

== ENCOUNTER 2017-08-01 01:04 | Emergency (ER) | payer MEDICARE, OTHER ==
[2017-08-01 01:05] VITALS: BMI 25.0
[2017-08-01 01:12] VITALS: BP 147/75; RESP 0
--- NOTE | 2017-08-01 01:31 | ED PDOC ---
Arrival/HPI - General Chief Complaint: Cardiac Arrest Time Seen by Provider: 08/01/17 01:09 Historian: EMS - History of Present Illness Narrative History of Present Illness (Text): 08/01/17 01:24 Finn Ferreira is an 81 year old male, whose past medical history includes frequent falls, COPD on home oxygen 2L, hypertension, and GERD, was brought in by [facility] from [facility] s/p cardiac arrest. As per EMS, patient was found in bed unresponsive and CPR was initiated immediately. CPR was proceeded continuously for 20 minutes with brief revival of pulses prior to arrival. Patient was intubated prior to arrival. Upon arrival to the Emergency department, patient showed clear signs of no life, pulseless, and fixed pupils. Despite all measures patient at 1:15 am this morning. Time/Duration: 1/2 hour Symptom Onset: Sudden Symptom Course: Unchanged Activities at Onset: Light Context: Other ([facility] ) Past Medical History - Provider Review Nursing Documentation Reviewed: Yes - Infectious Disease Hx of Infectious Diseases: None - Cardiac Hx Hypertension: Yes - Pulmonary Hx Chronic Obstructive Pulmonary Disease (COPD): Yes - Neurological Hx Dizziness: Yes (frequent falls) Other/Comment: Forgetful. poor historian - HEENT Hx Cataracts: Yes - Renal Hx Renal Disorder: No - Hematological/Oncological Hx Blood Disorders: No - Integumentary Hx Dermatological Disorder: No - Musculoskeletal/Rheumatological Hx Falls: Yes (multiple falls) - Gastrointestinal Hx Gastrointestinal Disorders: No - Genitourinary/Gynecological Hx Genitourinary Disorders: No - Psychiatric Hx Depression: Yes Hx Substance Use: No - Surgical History Other/Comment: polyps removed from vocal chords - Anesthesia Hx Anesthesia Reactions: No Hx Malignant Hyperthermia: No - Suicidal Assessment Feels Threatened In Home Enviroment: No Family/Social History - Physician Review Nursing Documentation Reviewed: Yes Family/Social History: Unknown Family HX Smoking Status: Former Smoker Hx Alcohol Use: Yes Hx Substance Use: No Hx Substance Use Treatment: No Allergies/Home Meds Allergies/Adverse Reactions: Allergies No Known Allergies Allergy (Verified 08/01/17 01:08) Home Medications: Home Meds Medication Instructions Recorded Confirmed Unobtainable 07/15/17 08/01/17 Review of Systems - Physician Review All systems were reviewed & negative as marked: Yes - Review of Systems Systems not reviewed;Unavailable: Other (unresponsive secondary to cardiac arrest) Constitutional: Other (pulseless ) Eyes: Normal, Other (fixed ) 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 pupils fixed and dilated. ) Respiratory/Chest: Present: Clear to Auscultation, Other (chest rises with artificial respiration. ) Cardiovascular: Present: Other (No heart tones appreciated. ) Abdomen: Present: Other (No palpable masses. ). No: Tenderness Upper Extremity: Present: Other (no pulse in peripheral extremity) Lower Extremity: Present: Other (no peripheral pulse ) Neurological: Present: Other (no peripheral pulse ) Skin: Present: Cold, Pale Medical Decision Making ED Course and Treatment: 08/01/17 01:30 Impression: 81 year old male was brought to the Emergency department s/p cardiac arrest. Plan: -- Reassess and disposition Prior Visits: Notes and results from previous visits were reviewed. On 07/15/17 patient presented to the Emergency department s/p fall. Patient discharged home after treatment with instructions to follow-up with primary care. 08/01/17 01:35 Despite resuscitation efforts, patient at 1:15 am. - Scribe Statement The provider has reviewed the documentation as recorded by the Scribcoco Salazar. All medical record entries made by the Scribe were at my direction and personally dictated by me. I have reviewed the chart and agree that the record accurately reflects my personal performance of the history, physical exam, medical decision making, and the department course for this patient. I have also personally directed, reviewed, and agree with the discharge instructions and disposition. Disposition/Present on Arrival - Present on Arrival Any Indicators Present on Arrival: No History of DVT/PE: No History of Uncontrolled Diabetes: No Urinary Catheter: No History of Decub. Ulcer: No History Surgical Site Infection Following: None - Disposition Have Diagnosis and Disposition been Completed?: Yes Diagnosis: Sudden cardiac Disposition: WITH WITHOUT AUTOPSY Disposition Time: 01:15 Condition: Forms: [employer] (Togolese)
[2017-08-01 04:01] VITALS: PULSE 0
--- NOTE | 2017-08-01 15:09 | CARD ---
APPROVED REPORT EKG Measurement Heart [id number] <Conclusion> Wide QRS rhythm with occasional and consecutive premature ventricular complexes Right bundle branch block Abnormal ECG
== END 2017-08-01 02:00 ==
LOC: ED 01:04
DX: I46.9 Cardiac arrest, cause unspecified (principal); I10 Essential (primary) hypertension; K21.9 Gastro-esophageal reflux disease without esophagitis; J44.9 Chronic obstructive pulmonary disease, unspecified; Z87.891 Personal history of nicotine dependence; Z99.81 Dependence on supplemental oxygen